=== PATIENT | male | born 2000 | race Caucasian/White ===

== ENCOUNTER 2019-05-28 13:51 | Inpatient (IN) | payer OTHER ==
[2019-05-28 13:57] VITALS: BMI 37.4
[2019-05-28] MEDS ORDERED: ACETAMINOPHEN 1000 MG/100 ML VIAL (NON FORMULARY) IVPB ONE (14:31)
[2019-05-28] MEDS ORDERED: ONDANSETRON 4 MG/2 ML VIAL IVPUSH ONE (14:31)
[2019-05-28] MEDS ORDERED: FAMOTIDINE 20 MG/50 ML IVPB 20 MG/50 ML MG IVPB ONE ×2 (14:31→15:48)
[2019-05-28] MEDS ORDERED: SODIUM CHLORIDE 0.9% 500 ML INFUS.BAG IV ONE ×2 (14:38→17:27)
[2019-05-28] MEDS ORDERED: morphine CARPU-JECT 4 MG/1 ML DISP.SYRIN IVPUSH ONE (14:51)
--- NOTE | 2019-05-28 14:58 | PDOC ---
History of Present Illness - General Chief Complaint: Nausea/Vomiting Stated Complaint: VOMITING Time Seen by Provider: 05/28/19 14:26 - History of Present Illness Initial Comments: 05/28/19 14:52 18 yo M PMH HTN not on medications, presenting with epigastric abdominal pain. Reports that it began this morning at approximately 1000, associated with severe nausea and vomiting, keeping down fluids but unable to keep down any food. Denies CP, SOB, constipation/diarrhea, fevers/chills, ELIAS. Endorses abdominal pain, N/V. Past History - Past Medical History Allergies/Adverse Reactions: Allergies Allergy/AdvReac Type Severity Reaction Status Date / Time No Known Allergies Allergy Verified 05/28/19 13:58 COPD: No HTN: Yes - Psycho Social/Smoking Cessation Hx Smoking History: Never smoked Review of Systems - Review of Systems Comments:: 05/28/19 14:55 GENERAL/CONSTITUTIONAL: No fever or chills. No weakness. HEAD, EYES, EARS, NOSE AND THROAT: No change in vision. No ear pain or discharge. No sore throat. CARDIOVASCULAR: No chest pain or shortness of breath. RESPIRATORY: No cough, wheezing, or hemoptysis. GASTROINTESTINAL: Nausea with vomiting. No diarrhea or constipation. GENITOURINARY: No dysuria, frequency, or change in urination. MUSCULOSKELETAL: No joint or muscle swelling or pain. No neck or back pain. SKIN: No rash NEUROLOGIC: No headache, vertigo, loss of consciousness, or change in strength/ sensation. ENDOCRINE: No increased thirst. No abnormal weight change. HEMATOLOGIC/LYMPHATIC: No anemia, easy bleeding, or history of blood clots. ALLERGIC/IMMUNOLOGIC: No hives or skin allergy *Physical Exam - Vital Signs Last Vital Signs Temp Pulse Resp BP Pulse Ox 98 F 100 H 18 179/120 H 98 05/28/19 13:52 05/28/19 13:52 05/28/19 13:52 05/28/19 13:52 05/28/19 13:52 - Physical Exam 05/28/19 14:57 Gen: well-developed, well-nourished, mild distress Neuro: AAOX4, CN II-XII intact, FTN intact, EOMI, PERRLA, 5/5 strength, SILT HEENT: atraumatic, normocephalic, dry mucous membranes Neck: trachea midline, supple CV: tachycardic, regular rhythm, no murmurs, rubs, or gallops Pulm: CTA b/l, no wheezing Abd: soft, non-distended, ttp in epigastrium, positive Garcia's MSK: full ROM, intact pulses Extr: no edema, no deformities Skin: warm, dry ED Treatment Course - LABORATORY CBC & Chemistry Diagram: 05/28/19 15:15 05/28/19 15:15 Medical Decision Making - Medical Decision Making 05/28/19 14:58 Concern for gastritis v PUD v pancreatitis v cholecystitis. - CMP, CBC, lipase - Ofirmev, Zofran, morphine, 1L NS - ctm 05/28/19 15:46 WBC 23. Will get CT abd/pelvis w/ contrast. 05/28/19 17:28 Lipase 9724. RUQ US with diffuse hepatic steatosis, mildly dilated CBD at 0.7, no biliary wall enlargement, no biliary calculus. CT abd/pelvis: Acute pancreatitis, distended bladder, diffuse hepatic steatosis. Discharge - Discharge Information Problems reviewed: Yes Clinical Impression/Diagnosis: Acute pancreatitis, Hyperglycemia Condition: Improved - Follow up/Referral - Patient Discharge Instructions - Post Discharge Activity
[2019-05-28] MEDS ORDERED: ACETAMINOPHEN INJECTION 100 ML IVPB ONE (15:19)
[2019-05-28] MEDS ORDERED: morphine SULFATE 4 MG/ML VIAL ONE (15:19)
[2019-05-28] MEDS ORDERED: ONDANSETRON 4 MG/2 ML VIAL ONE (15:19)
[2019-05-28 15:29] LABS: BASO % 0.4 % (0-2.0); EOS % 0.6 % (0-4.5); HEMATOCRIT 49.3 % (35.4-49); HEMOGLOBIN 16.5 GM/dL (11.7-16.9); LYMPH % 9.9 % (8-40); MCH 28.3 pg (25.7-33.7); MCHC 33.5 g/dl (32.0-35.9); MEAN CELL VOLUME 84.5 fl (80-96); MEAN PLT VOLUME 8.2 fl (7.5-11.1); MONO % 5.6 % (3.8-10.2); NEUT % 83.5 % (42.8-82.8); PLATELET COUNT 392 K/MM3 (134-434); RBC 5.83 M/mm3 (4.00-5.60); RDW 13.9 % (11.9-15.9)
--- NOTE | 2019-05-28 15:33 | PDOC ---
Attending Attestation - Resident Resident Name: Giuliana Headley - ED Attending Attestation I have performed the following: I have examined & evaluated the patient, The case was reviewed & discussed with the resident, I agree w/resident's findings & plan, Exceptions are as noted - HPI HPI: 05/29/19 09:49 18 y/o with severe epigastric pain starting yesterday No pmh, no meds, denies etoh. Severe persistant constant radiates to back, no exacerbating or alleviating factors - Physicial Exam PE: 06/01/19 08:17 Vitals: Triage Vital signs reviewed General Appearance: Moderate distress head: Atraumatic, Chest Wall: Nontender Cardiac: Regular rate and rhythym, no murmurs, no rubs, no gallops, Lungs: Clear to auscultation bilateral, good air movement bilaterally, Abdomen: Soft, non distended, moderate epigastric tenderness to palpation no rebound no guarding Extremities: Full range of motion to all extremities, no cyanosis, clubbing, or edema Psych: Normal mood, normal affect - Medical Decision Making 05/28/19 15:44 Nausea vomiting epigastric pain elevated white blood cell count will CT abdomen pelvis and reassess Dr. Abbott to follow-up results and dispo
[2019-05-28 15:58] LABS: ALBUMIN 3.3 g/dl (3.4-5.0); BILIRUBIN,TOTAL 0.3 mg/dL (0.2-1); BLOOD UREA NITROGEN 17.9 mg/dL (7-18); CALCIUM 8.9 mg/dL (8.5-10.1); CREATININE 1.1 mg/dL (0.55-1.3); POTASSIUM 3.7 mmol/L (3.5-5.1); TOT PROT 7.3 g/dl (6.4-8.2)
[2019-05-28 16:28] LABS: PLATELET ESTIMATE INCREASED
[2019-05-28] MEDS ORDERED: SODIUM CHLORIDE 0.9% 1000 ML INFUS.BAG IV ONE (18:09)
[2019-05-28] MEDS ORDERED: LACTATED RINGERS SOLUTION 1,000 ML/1,000 ML INFUS.BAG IV SCH (18:15)
[2019-05-28 19:03] LABS: VENOUS PC02 39.7 mmHg (38-52); VENOUS PH 7.35 (7.31-7.41); VENOUS PO2 62.8 mmHg (28-48)
--- NOTE | 2019-05-28 19:37 | HP ---
Admitting History and Physical - Primary Care Physician PCP: Juancho Keane - Admission History of Present Illness: 18 yo M PMH HTN not on medications, presenting with epigastric abdominal pain. Reports that it began this morning at approximately 1000, associated with severe nausea and vomiting, keeping down fluids but unable to keep down any food. - Smoking History Smoking history: Never smoked Home Medications - Allergies Allergies/Adverse Reactions: Allergies Allergy/AdvReac Type Severity Reaction Status Date / Time No Known Allergies Allergy Verified 05/28/19 13:58 - Home Medications Home Medications: Ambulatory Orders NK [No Known Home Medication] 05/28/19 Physical Examination Vital Signs: Vital Signs Temperature 98 F 05/28/19 13:52 Pulse Rate 102 H 05/28/19 18:24 Respiratory Rate 18 05/28/19 13:52 Blood Pressure 169/119 H 05/28/19 18:24 O2 Sat by Pulse Oximetry (%) 98 05/28/19 18:24 Constitutional: Yes: No Distress HENT: Yes: Atraumatic Neck: Yes: Supple Cardiovascular: Yes: Regular Rate and Rhythm Respiratory: Yes: CTA Bilaterally Gastrointestinal: Yes: Normal Bowel Sounds Extremities: Yes: WNL Edema: No Neurological: Yes: Alert, Oriented Labs: CBC, BMP 05/28/19 15:15 05/28/19 15:15 Imaging - Results Cat Scan: Report Reviewed Ultrasound: Report Reviewed Problem List - Problems (1) Acute pancreatitis Assessment/Plan: npo ivf, iv protonix gi eval Code(s): K85.90 - ACUTE PANCREATITIS WITHOUT NECROSIS OR INFECTION, UNSP (2) Hyperglycemia Assessment/Plan: monitor sugars Code(s): R73.9 - HYPERGLYCEMIA, UNSPECIFIED Assessment/Plan Laboratory Tests 05/28/19 05/28/19 05/28/19 15:15 15:15 18:41 WBC 23.0 H RBC 5.83 H Hgb 16.5 Hct 49.3 H MCV 84.5 MCH 28.3 MCHC 33.5 RDW 13.9 Plt Count 392 MPV 8.2 Absolute Neuts (auto) 19.2 H Total Counted 100 Neutrophils % 83.5 H Neutrophils % (Manual) 78.0 Band Neutrophils % 5.0 Lymphocytes % 9.9 Lymphocytes % (Manual) 7.0 L Monocytes % 5.6 Monocytes % (Manual) 8 Eosinophils % 0.6 Basophils % 0.4 Nucleated RBC % 0 Metamyelocytes 2 Platelet Estimate Increased Platelet Comment No clumping noted VBG pH POC VBG pCO2 POC VBG pO2 VBG HCO3 VBG O2 Sat (Colt) VBG Base Excess Sodium 136 Potassium 3.7 Chloride 104 Carbon Dioxide 23 Anion Gap 10 BUN 17.9 Creatinine 1.1 Est GFR (CKD-EPI)AfAm 112.20 Est GFR (CKD-EPI)NonAf 96.80 Random Glucose 269 H Lactic Acid 1.8 Calcium 8.9 Total Bilirubin 0.3 AST 29 ALT 55 Alkaline Phosphatase 98 Total Protein 7.3 Albumin 3.3 L Lipase 9724 H 05/28/19 18:41 WBC RBC Hgb Hct MCV MCH MCHC RDW Plt Count MPV Absolute Neuts (auto) Total Counted Neutrophils % Neutrophils % (Manual) Band Neutrophils % Lymphocytes % Lymphocytes % (Manual) Monocytes % Monocytes % (Manual) Eosinophils % Basophils % Nucleated RBC % Metamyelocytes Platelet Estimate Platelet Comment VBG pH 7.35 POC VBG pCO2 39.7 POC VBG pO2 62.8 H VBG HCO3 21.5 L VBG O2 Sat (Colt) 91.6 H VBG Base Excess -3.3 L Sodium Potassium Chloride Carbon Dioxide Anion Gap BUN Creatinine Est GFR (CKD-EPI)AfAm Est GFR (CKD-EPI)NonAf Random Glucose Lactic Acid Calcium Total Bilirubin AST ALT Alkaline Phosphatase Total Protein Albumin Lipase Active Medications Generic Name Dose Route Start Last Admin Trade Name Freq PRN Reason Stop Dose Admin Sodium Chloride 1,000 mls @ 100 mls/hr 05/28/19 19:45 Normal Saline - IV ASDIR VAL Morphine Sulfate 2 mg 05/28/19 19:34 Morphine Sulfate IVPUSH Q4H PRN PAIN LEVEL 4 - 6 Pantoprazole Sodium 40 mg 05/29/19 10:00 Protonix Iv IVPUSH DAILY VAL
[2019-05-28] MEDS ORDERED: SODIUM CHLORIDE 1,000 ML IV SCH (19:45)
[2019-05-28] MEDS ORDERED: MORPHINE SULFATE 2 MG/ML VIAL ONE (21:50)
[2019-05-28] MEDS: MORPHINE SULFATE 2 MG/ML VIAL IVPUSH PRN (21:55)
[2019-05-29 07:08] LABS: BASO % 0.2 % (0-2.0); EOS % 0.1 % (0-4.5); HEMATOCRIT 53.3 % (35.4-49); HEMOGLOBIN 17.8 GM/dL (11.7-16.9); LYMPH % 7.8 % (8-40); MCH 28.7 pg (25.7-33.7); MCHC 33.4 g/dl (32.0-35.9); MEAN CELL VOLUME 85.8 fl (80-96); MEAN PLT VOLUME 8.8 fl (7.5-11.1); MONO % 8.1 % (3.8-10.2); NEUT % 83.8 % (42.8-82.8); PLATELET COUNT 435 K/MM3 (134-434); RBC 6.22 M/mm3 (4.00-5.60); RDW 14.3 % (11.9-15.9); WHITE BLOOD COUNT 19.3 K/mm3 (4.0-10.0)
[2019-05-29 07:30] LABS: ALBUMIN 2.9 g/dl (3.4-5.0); BILIRUBIN,TOTAL 0.9 mg/dL (0.2-1); BLOOD UREA NITROGEN 15.4 mg/dL (7-18); CALCIUM 8.3 mg/dL (8.5-10.1); CREATININE 1.6 mg/dL (0.55-1.3); POTASSIUM 3.8 mmol/L (3.5-5.1); TOT PROT 6.8 g/dl (6.4-8.2)
[2019-05-29] MEDS ORDERED: ACETAMINOPHEN INJECTION 100 ML IVPB ONE (08:54)
[2019-05-29] MEDS ORDERED: ACETAMINOPHEN 1000 MG/100 ML VIAL (NON FORMULARY) IVPB ONE (08:54)
[2019-05-29] MEDS ORDERED: PANTOPRAZOLE SODIUM 40 MG VIAL IVPUSH SCH (10:00)
--- NOTE | 2019-05-29 11:36 | CON.GI ---
Consult - History of Present Illness History of Present Illness: GI CONSULT DICTATED ORDERS ENTERED SURGERY AND MICU EVALUATION CONTACTED DR. SHELDON - Smoking History Smoking history: Never smoked Home Medications - Allergies Allergies/Adverse Reactions: Allergies Allergy/AdvReac Type Severity Reaction Status Date / Time No Known Allergies Allergy Verified 05/28/19 13:58 - Home Medications Home Medications: Ambulatory Orders NK [No Known Home Medication] 05/28/19 Physical Exam-GI Vital Signs: Vital Signs Temperature 100.8 F H 05/29/19 08:49 Pulse Rate 158 H 05/29/19 08:49 Respiratory Rate 20 05/29/19 08:49 Blood Pressure 156/101 H 05/29/19 08:49 O2 Sat by Pulse Oximetry (%) 97 05/29/19 08:49 Labs: CBC, BMP 05/29/19 05:50 05/29/19 05:50
[2019-05-29] MEDS ORDERED: PANTOPRAZOLE SODIUM 40 MG VIAL ONE (11:52)
--- NOTE | 2019-05-29 12:32 | PN ---
Progress Note, Physician - Current Medication List Current Medications: Active Medications Sodium Chloride (Normal Saline -) 1,000 mls @ 100 mls/hr IV ASDIR [facility] Last Admin: 05/28/19 20:36 Dose: 100 mls/hr Morphine Sulfate (Morphine Sulfate) 2 mg IVPUSH Q4H PRN PRN Reason: PAIN LEVEL 4 - 6 Last Admin: 05/28/19 21:55 Dose: 2 mg Pantoprazole Sodium (Protonix Iv) 40 mg IVPUSH DAILY [facility] Last Admin: 05/29/19 11:51 Dose: 40 mg - Objective Vital Signs: Vital Signs Temperature 98 F 05/29/19 11:51 Pulse Rate 135 H 05/29/19 11:51 Respiratory Rate 19 05/29/19 11:51 Blood Pressure 176/105 H 05/29/19 11:51 O2 Sat by Pulse Oximetry (%) 99 05/29/19 11:51 Constitutional: Yes: Calm HENT: Yes: Atraumatic Neck: Yes: Supple Cardiovascular: Yes: Regular Rate and Rhythm Respiratory: Yes: CTA Bilaterally Gastrointestinal: Yes: Normal Bowel Sounds Extremities: Yes: WNL Edema: No Peripheral Pulses WNL: Yes Neurological: Yes: Alert, Oriented Labs: CBC, BMP 05/29/19 05:50 05/29/19 05:50 Problem List - Problems (1) Acute pancreatitis Assessment/Plan: npo ivf, iv protonix gi surgery and id eval Code(s): K85.90 - ACUTE PANCREATITIS WITHOUT NECROSIS OR INFECTION, UNSP (2) Hyperglycemia Assessment/Plan: monitor sugars endo consult Code(s): R73.9 - HYPERGLYCEMIA, UNSPECIFIED
--- NOTE | 2019-05-29 13:06 | CON.ID ---
Consult - Smoking History Smoking history: Never smoked Home Medications - Allergies Allergies/Adverse Reactions: Allergies Allergy/AdvReac Type Severity Reaction Status Date / Time No Known Allergies Allergy Verified 05/28/19 13:58 - Home Medications Home Medications: Ambulatory Orders NK [No Known Home Medication] 05/28/19 Physical Exam Vital Signs: Vital Signs Temperature 98 F 05/29/19 11:51 Pulse Rate 135 H 05/29/19 11:51 Respiratory Rate 19 05/29/19 11:51 Blood Pressure 176/105 H 05/29/19 11:51 O2 Sat by Pulse Oximetry (%) 99 05/29/19 11:51 Labs: CBC, BMP 05/29/19 05:50 05/29/19 05:50
[2019-05-29] MEDS ORDERED: SODIUM CHLORIDE 1,000 ML IV SCH ×2 (13:38→13:43)
--- NOTE | 2019-05-29 15:52 | CONS ---
GASTROINTESTINAL CONSULTATION DATE OF CONSULTATION: DATE OF DICTATION: 05/29/2019 HISTORY OF PRESENT ILLNESS: The patient is a 18-year-old man with a past medical history of hypertension who presented to the emergency room with epigastric abdominal discomfort with associated nausea and vomiting which began yesterday morning. He states he has also had some chills. He denies any alcohol use, change in medication, previous episodes of this type of pain. No change in his bowel habit, blood in his stool or hematemesis. He has never had pancreatitis in the past as per his history and review of the current chart. PAST MEDICAL AND SURGICAL HISTORY: As listed in the HPI. ALLERGIES: No known drug allergies. SOCIAL HISTORY: Does not drink, smoke or use drugs. FAMILY HISTORY: No history of pancreatic or biliary disease, colon cancer or gynecological malignancy. REVIEW OF SYSTEMS: As per the HPI. Of note, he has never had an endoscopic evaluation in the past. PHYSICAL EXAMINATION: Vital Signs: Temperature 100.8, pulse 130, blood pressure 176/105, oxygen saturation 99% on room air. General: No acute distress. HEENT: Anicteric sclera. Cardiovascular: S1, S2. Regular rate and rhythm. Lungs: Bilaterally clear to auscultation. Abdomen: Tender in the epigastrium without rebound or guarding. Extremities: No edema. LABORATORIES: White blood cell count 19, hemoglobin 17 over 53, platelet count 435. Sodium 139, potassium 3.8, BUN over creatinine 15 over 1.6, lactic acid 1.8. Hemoglobin A1c 9. Calcium 8.3. Lipase 9724, total amylase 1000. IMAGING: He had a CT scan of the abdomen and pelvis done yesterday on admission which revealed acute pancreatitis, no biliary ductal dilatation, and no necrosis was visualized on this contrast study. There is also hepatic steatosis. IMPRESSION: Acute pancreatitis exclude microlithiasis as an etiology as well as HLD, autoimmune etiology. Obtain an MRCP to further evaluate the biliary tree, also lipid panel to exclude hypertriglyceridemia as an etiology, and an IgG4 level to exclude autoimmune etiology.Increase IV fluids to 200 mL per hour. Repeat labs in 6 hours. Panculture. Blood cultures x2. - UA / Urine culture. N.p.o. MRCP ordered. Monitor volume status. Surgery evaluation. Pain management. He may benefit from an ICU evaluation, considering he is tachycardic and appears to be quite volume depleted. Plan of care discussed with primary medical team. DO ANSLEY JACKSON/[id number] [email or web address]
[2019-05-29] MEDS ORDERED: CEFTRIAXONE 1 GM in DEXTROSE 5%-WATER - 50 ML IVPB ONE (16:30)
[2019-05-29] MEDS ORDERED: DEXTROSE 5%-WATER - 50 ML IVPB ONE (16:45)
[2019-05-29] MEDS ORDERED: cefTRIAXone SODIUM 1 GM VIAL ONE (16:45)
[2019-05-29] MEDS: amLODIPine BESYLATE 5 MG TABLET (FP) PO SCH (19:52)
[2019-05-29] MEDS: SODIUM CHLORIDE 1,000 ML IV SCH (19:53)
[2019-05-30] MEDS: MORPHINE SULFATE 2 MG/ML VIAL IVPUSH PRN ×2 (01:16→05:16)
[2019-05-30] MEDS: SODIUM CHLORIDE 1,000 ML IV SCH ×2 (01:42→10:00)
[2019-05-30 06:32] LABS: BASO % 0.3 % (0-2.0); EOS % 1.5 % (0-4.5); HEMOGLOBIN 14.8 GM/dL (11.7-16.9); LYMPH % 13.9 % (8-40); MCH 28.6 pg (25.7-33.7); MCHC 33.7 g/dl (32.0-35.9); MEAN CELL VOLUME 84.7 fl (80-96); MEAN PLT VOLUME 8.2 fl (7.5-11.1); MONO % 12.3 % (3.8-10.2); PLATELET COUNT 316 K/MM3 (134-434); RDW 14.4 % (11.9-15.9); WHITE BLOOD COUNT 17.5 K/mm3 (4.0-10.0)
[2019-05-30 07:16] LABS: ALBUMIN 2.3 g/dl (3.4-5.0); BILIRUBIN,TOTAL 0.6 mg/dL (0.2-1); BLOOD UREA NITROGEN 13.9 mg/dL (7-18); CALCIUM 7.8 mg/dL (8.5-10.1); CREATININE 0.9 mg/dL (0.55-1.3); POTASSIUM 3.7 mmol/L (3.5-5.1); TOT PROT 5.3 g/dl (6.4-8.2)
[2019-05-30 07:37] LABS: CHOLESTEROL 198 mg/dL (50-200); HDL CHOLESTEROL 23 mg/dL (40-60); LDL CHOLESTEROL (ONLY SJRH) 104 mg/dL (5-100); TRIGLYCERIDES 415 mg/dL (0-150)
[2019-05-30] MEDS ORDERED: MORPHINE SULFATE 2 MG/ML VIAL IVPUSH PRN (08:41)
--- NOTE | 2019-05-30 08:44 | CONSULT ---
- Consultation REQUESTING PROVIDER: CONSULT REQUEST: We have been asked to surgically evaluate this patient for acute pancreatitis PCP:Juancho Keane HISTORY OF PRESENT ILLNESS: 18yo M presented to the ED with complaints of epigastric pain with n/v starting sunday 05/27. Pt was found to have acute pancreatitis, with no signs of gallstones or biliary obstruction on US or CT. Pt denies heavy ETOH use admits to drinking socially. Pt denies any recent travel or trauma. Pt states that he had a fever and chills when he came to the ED yesterday. Pt denies any history of pancreatitis or liver issues. PMHx: HTN, obesity PSHx: denies Home Medications Medication Instructions Recorded NK [No Known Home Medication] 05/28/19 Allergies Allergy/AdvReac Type Severity Reaction Status Date / Time No Known Allergies Allergy Verified 05/28/19 13:58 REVIEW OF SYSTEMS: CARDIOVASCULAR: Absent: chest pain, syncope, palpitations, irregular heart rate, lightheadedness , peripheral edema RESPIRATORY: Absent: cough, shortness of breath, dyspnea with exertion, wheezing, stridor, hemoptysis MUSCULOSKELETAL: Absent: myalgia, arthralgia, joint swelling, back pain, neck pain SKIN: Absent: rash, itching, pallor HEMATOLOGIC/IMMUNOLOGIC: Absent: easy bleeding, easy bruising, lymphadenopathy NEUROLOGIC: Absent: headache, focal weakness, paresthesias, dizziness, unsteady gait, seizure, mental status changes, bladder or bowel incontinence PHYSICAL EXAM: GENERAL: Awake, alert, and fully oriented, in no acute distress. HEAD: Normal with no signs of trauma. EYES: PERRL, sclera anicteric, conjunctiva clear. NECK: Normal ROM LUNGS: Clear to auscultation bilat anteriorly. No wheezes, and no crackles. No accessory muscle use. HEART: Regular rate and rhythm. No murmurs ABDOMEN: Soft, mild epigastric tenderness, not distended, no guarding, no rebound, no masses. No organomegaly. MUSCULOSKELETAL: Normal ROM at all joints. No bony deformities or tenderness. No CVA tenderness. UPPER EXTREMITIES: warm, well-perfused. No cyanosis. Cap refill <2 seconds. No peripheral edema. LOWER EXTREMITIES: warm, well-perfused. No calf tenderness. No peripheral edema. NEUROLOGICAL: Normal speech, gait not observed. PSYCH: Cooperative. Good eye contact. Appropriate mood and affect. SKIN: Warm, dry, normal turgor, no rashes or lesions noted. Vital Signs Temperature 99.8 F H 05/30/19 05:33 Pulse Rate 122 H 05/30/19 05:33 Respiratory Rate 22 H 05/30/19 05:33 Blood Pressure 167/106 H 05/30/19 05:33 O2 Sat by Pulse Oximetry (%) 96 05/29/19 20:28 Lab Results WBC 17.5 K/mm3 (4.0-10.0) H 05/30/19 05:34 RBC 5.20 M/mm3 (4.00-5.60) 05/30/19 05:34 Hgb 14.8 GM/dL (11.7-16.9) 05/30/19 05:34 Hct 44.0 % (35.4-49) D 05/30/19 05:34 MCV 84.7 fl (80-96) 05/30/19 05:34 MCHC 33.7 g/dl (32.0-35.9) 05/30/19 05:34 RDW 14.4 % (11.9-15.9) 05/30/19 05:34 Plt Count 316 K/MM3 (134-434) D 05/30/19 05:34 Sodium 143 mmol/L (136-145) 05/30/19 05:34 Potassium 3.7 mmol/L (3.5-5.1) 05/30/19 05:34 Chloride 111 mmol/L (98-107) H 05/30/19 05:34 Carbon Dioxide 23 mmol/L (21-32) 05/30/19 05:34 Anion Gap 9 MMOL/L (8-16) 05/30/19 05:34 BUN 13.9 mg/dL (7-18) 05/30/19 05:34 Creatinine 0.9 mg/dL (0.55-1.3) 05/30/19 05:34 Random Glucose 192 mg/dL (74-106) H 05/30/19 05:34 Calcium 7.8 mg/dL (8.5-10.1) L 05/30/19 05:34 RUQ US with diffuse hepatic steatosis, mildly dilated CBD at 0.7, no biliary wall enlargement, no biliary calculus. CT abd/pelvis: Acute pancreatitis, distended bladder, diffuse hepatic steatosis. Problem List - Problems (1) Acute pancreatitis Assessment/Plan: Plan -continue NPO/IVF -abx as per med/ID -will follow up abd MRI -GI recs -DVT and GI ppx Code(s): K85.90 - ACUTE PANCREATITIS WITHOUT NECROSIS OR INFECTION, UNSP
[2019-05-30] MEDS ORDERED: hydrALAZINE HCL 20 MG/ML VIAL IVPB ONE (09:00)
--- NOTE | 2019-05-30 09:32 | CONSULT ---
Addendum entered and electronically signed by Norman Florian MD 05/30/19 12: 47: error note Original Note: Consult Consult Specialty:: Endocrinology Referred by:: Dr Keane Reason for Consultation:: Hyperglycemia - History of Present Illness Chief Complaint: Abd pain, N/V History of Present Illness: This is a 18 y/o male with h/o HTN not on medications who presenting with epigastric abdominal pain which began in the morning at approximately associated with severe nausea and vomiting, keeping down fluids but unable to keep down any food. Pt found to have acute pancreatitis and hyperglycemia. Pt referred for management of hyperglycemia. Pt gives h/o increase thirst for about a week, wt loss of around 15 lbs over the last year which he attributes to exercising. Denies any visual symptoms. No family h/o DM Denies CP, SOB, constipation/diarrhea, fevers/chills, ELIAS. Endorses abdominal pain, N/V. - Smoking History Smoking history: Never smoked <Windy Pantoja - Last Filed: 05/30/19 16:04> Home Medications <Norman Florian - Last Filed: 05/30/19 12:46> <Windy Pantoja - Last Filed: 05/30/19 16:04> - Allergies Allergies/Adverse Reactions: Allergies Allergy/AdvReac Type Severity Reaction Status Date / Time No Known Allergies Allergy Verified 05/28/19 13:58 - Home Medications Home Medications: Ambulatory Orders NK [No Known Home Medication] 05/28/19 Physical Exam Vital Signs: Vital Signs Temperature 99.8 F H 05/30/19 05:33 Pulse Rate 122 H 05/30/19 05:33 Respiratory Rate 22 H 05/30/19 05:33 Blood Pressure 167/106 H 05/30/19 05:33 O2 Sat by Pulse Oximetry (%) 96 05/29/19 20:28 Labs: CBC, BMP 05/30/19 05:34 05/30/19 05:34 <Norman Florian - Last Filed: 05/30/19 12:46> Vital Signs: Vital Signs Temperature 99.8 F H 05/30/19 05:33 Pulse Rate 122 H 05/30/19 05:33 Respiratory Rate 22 H 05/30/19 05:33 Blood Pressure 167/106 H 05/30/19 05:33 O2 Sat by Pulse Oximetry (%) 96 05/29/19 20:28 Labs: CBC, BMP 05/30/19 05:34 05/30/19 05:34 <Wnidy Pantoja - Last Filed: 05/30/19 16:04> Assessment/Plan Problem List - Problems (1) Acute pancreatitis Code(s): K85.90 - ACUTE PANCREATITIS WITHOUT NECROSIS OR INFECTION, UNSP (2) Hyperglycemia Code(s): R73.9 - HYPERGLYCEMIA, UNSPECIFIED obesity abd pain plan i am going to hold abx for now will see what repeat imaging shows hydration npo gi and endo on board <Norman Florian - Last Filed: 05/30/19 12:46> Please see 2nd consult note as this incomplete note was sign by Dr Florian by error. Windy Pantoja MD <Windy Pantoja - Last Filed: 05/30/19 16:04>
[2019-05-30] MEDS: PANTOPRAZOLE SODIUM 40 MG VIAL IVPUSH SCH (09:57)
[2019-05-30] MEDS: amLODIPine BESYLATE 5 MG TABLET (FP) PO SCH (09:59)
--- NOTE | 2019-05-30 10:42 | EKG ---
Test Reason : Blood Pressure : / mmHG Vent. Rate : 154 BPM Atrial Rate : 154 BPM P-R Int : 114 ms QRS Dur : 074 ms QT Int : 260 ms P-R-T Axes : 049 046 012 degrees QTc Int : 416 ms SINUS TACHYCARDIA NONSPECIFIC T WAVE ABNORMALITY ABNORMAL ECG WHEN COMPARED WITH ECG OF 29-MAY-2019 08:55, PREVIOUS ECG HAS UNDETERMINED RHYTHM, NEEDS REVIEW Confirmed by RITA ALDRICH, CECILY ([id number]) on 05/30/2019 10:41:27 AM Referred By: Confirmed By:CECILY SALINAS MD
--- NOTE | 2019-05-30 12:45 | PN ---
Progress Note, Physician History of Present Illness: feeling slightly better still with abd pain - Current Medication List Current Medications: Active Medications Amlodipine Besylate (Norvasc -) 5 mg PO DAILY [facility] Last Admin: 05/30/19 09:59 Dose: 5 mg Sodium Chloride (Normal Saline -) 1,000 mls @ 150 mls/hr IV ASDIR [facility] Last Admin: 05/30/19 10:00 Dose: 150 mls/hr Morphine Sulfate (Morphine Sulfate) 2 mg IVPUSH Q4H PRN PRN Reason: PAIN LEVEL 4 - 6 Pantoprazole Sodium (Protonix Iv) 40 mg IVPUSH DAILY [facility] Last Admin: 05/30/19 09:57 Dose: 40 mg - Objective Vital Signs: Vital Signs Temperature 99.8 F H 05/30/19 05:33 Pulse Rate 122 H 05/30/19 05:33 Respiratory Rate 22 H 05/30/19 05:33 Blood Pressure 167/106 H 05/30/19 05:33 O2 Sat by Pulse Oximetry (%) 96 05/29/19 20:28 Constitutional: Yes: Calm, Mild Distress, Obese Cardiovascular: Yes: Regular Rate and Rhythm Respiratory: Yes: Regular, CTA Bilaterally Gastrointestinal: Yes: Soft, Other (absent bowel sounds) Musculoskeletal: Yes: WNL Extremities: Yes: WNL Neurological: Yes: Alert, Oriented Psychiatric: Yes: Alert, Oriented Labs: CBC, BMP 05/30/19 05:34 05/30/19 05:34 Assessment/Plan Problem List - Problems (1) Acute pancreatitis Code(s): K85.90 - ACUTE PANCREATITIS WITHOUT NECROSIS OR INFECTION, UNSP (2) Hyperglycemia Code(s): R73.9 - HYPERGLYCEMIA, UNSPECIFIED obesity abd pain plan i am going to hold abx for now will see what repeat imaging shows hydration npo gi and endo on board
--- NOTE | 2019-05-30 14:45 | CON.CARD ---
Consult Consult Specialty:: Cardiology Referred by:: Hospitalist Medicine Reason for Consultation:: Sinus tachycardia - History of Present Illness Chief Complaint: Epigastric discomfort History of Present Illness: This is a 18 y/o male with h/o HTN not on medications who presented with epigastric abdominal pain radiating to back associated with severe nausea and vomiting, keeping down fluids but unable to keep down any food. Pt found to have acute pancreatitis, sinus tachycardia and hyperglycemia, feels improved after IVF, abx and bowel rest. - History Source History Provided By: Patient Limitations to Obtaining History: No Limitations - Smoking History Smoking history: Never smoked Home Medications - Allergies Allergies/Adverse Reactions: Allergies Allergy/AdvReac Type Severity Reaction Status Date / Time No Known Allergies Allergy Verified 05/28/19 13:58 - Home Medications Home Medications: Ambulatory Orders NK [No Known Home Medication] 05/28/19 Review of Systems - Review of Systems Gastrointestinal: reports: Abdominal Pain, Nausea, Vomiting Vital Signs: Vital Signs Temperature 98.4 F 05/30/19 14:38 Pulse Rate 135 H 05/30/19 14:38 Respiratory Rate 20 05/30/19 14:38 Blood Pressure 148/98 05/30/19 14:38 O2 Sat by Pulse Oximetry (%) 96 05/30/19 09:00 Constitutional: Yes: No Distress, Calm Neck: Yes: Supple Respiratory: Yes: Regular, CTA Bilaterally Gastrointestinal: Yes: Soft, Hypoactive Bowel Sounds Cardiovascular: Yes: Tachycardia JVD: No Carotid Bruit: No Heart Sounds: Yes: S1, S2 Edema: No - Other Data Labs, Other Data: CBC, BMP 05/30/19 05:34 05/30/19 05:34 ST @ 154 nonspec T changes Tele: ST Ejection Fraction %: LVEF > or = 40 % Problem List - Problems (1) Hypertension Code(s): I10 - ESSENTIAL (PRIMARY) HYPERTENSION Qualifiers: Hypertension type: essential hypertension Qualified Code(s): I10 - Essential (primary) hypertension (2) Sinus tachycardia Code(s): R00.0 - TACHYCARDIA, UNSPECIFIED (3) Acute pancreatitis Code(s): K85.90 - ACUTE PANCREATITIS WITHOUT NECROSIS OR INFECTION, UNSP Qualifiers: Pancreatitis type: other (4) Hyperglycemia Code(s): R73.9 - HYPERGLYCEMIA, UNSPECIFIED Assessment/Plan MRCP: No cholelithiasis or choledocholithiasis RUQ US with diffuse hepatic steatosis, mildly dilated CBD at 0.7, no biliary wall enlargement, no biliary calculus. CT abd/pelvis: Acute pancreatitis, distended bladder, diffuse hepatic steatosis. 1. Acute pancreatitis 2. Hypertension 3. Reactive sinus tachycardia P:1. Bowel rest, empiric abx per ID, IVF, f/u amylase/lipase to document peak 2. Continue Norvasc 5 qd 3. No specific treatment indicated for sinus tachycardia, treating underlying cause 4. Thank you for consultative opportunity
--- NOTE | 2019-05-30 16:01 | CONSULT ---
Consult Consult Specialty:: Endocrinology Referred by:: Dr Keane Reason for Consultation:: Hyperglycemia. - History of Present Illness Chief Complaint: Abd pain History of Present Illness: This is a 18 y/o male with h/o HTN not on medications who presenting with epigastric abdominal pain which began in the morning at approximately associated with severe nausea and vomiting, keeping down fluids but unable to keep down any food. Pt found to have acute pancreatitis and hyperglycemia. Pt referred for management of hyperglycemia. Pt gives h/o increase thirst for about a week, wt loss of around 15 lbs over the last year which he attributes to exercising. Denies any visual symptoms. No family h/o DM. Denies CP, SOB, constipation/diarrhea, fevers/chills, ELIAS. - History Source History Provided By: Patient, Medical Record - Smoking History Smoking history: Never smoked Home Medications - Allergies Allergies/Adverse Reactions: Allergies Allergy/AdvReac Type Severity Reaction Status Date / Time No Known Allergies Allergy Verified 05/28/19 13:58 - Home Medications Home Medications: Ambulatory Orders NK [No Known Home Medication] 05/28/19 Review of Systems - Review of Systems Constitutional: reports: No Symptoms Eyes: reports: No Symptoms HENT: reports: No Symptoms Neck: reports: No Symptoms Cardiovascular: reports: No Symptoms Respiratory: reports: No Symptoms Gastrointestinal: reports: Abdominal Pain Genitourinary: reports: No Symptoms Breasts: reports: No Symptoms Reported Musculoskeletal: reports: No Symptoms Integumentary: reports: No Symptoms Neurological: reports: No Symptoms Endocrine: reports: No Symptoms Hematology/Lymphatic: reports: No Symptoms Psychiatric: reports: No Symptoms Physical Exam Vital Signs: Vital Signs Temperature 98.4 F 05/30/19 14:38 Pulse Rate 135 H 05/30/19 14:38 Respiratory Rate 20 05/30/19 14:38 Blood Pressure 148/98 05/30/19 14:38 O2 Sat by Pulse Oximetry (%) 96 05/30/19 09:00 Constitutional: Yes: No Distress, Calm Eyes: Yes: Conjunctiva Clear, EOM Intact HENT: Yes: Atraumatic, Normocephalic Neck: Yes: Supple, Trachea Midline Cardiovascular: Yes: Regular Rate and Rhythm Respiratory: Yes: Regular, CTA Bilaterally Gastrointestinal: Yes: Tenderness, Epigastrium Extremities: Yes: WNL Edema: No Neurological: Yes: Alert, Oriented Labs: CBC, BMP 05/30/19 05:34 05/30/19 05:34 Assessment/Plan A/P Acute Pancreatitis New Onset DM: A1c 9.0 HTN Hypertriglyceridemia Diet exercise discussed Diabetes education done Nutrition consult BGM QACHS Novolog SS covrerage Will need to sent home on Insulin Will need w/u as outpt to confirm pt is T2DM Monitor lipids Will F/U
--- NOTE | 2019-05-30 16:31 | PN.GI ---
GI Progress Note Subjective: Patient pain free. No fevers, sweats, chills. - Objective Vital Signs: Vital Signs Temperature 98.4 F 05/30/19 14:38 Pulse Rate 135 H 05/30/19 14:38 Respiratory Rate 20 05/30/19 14:38 Blood Pressure 148/98 05/30/19 14:38 O2 Sat by Pulse Oximetry (%) 96 05/30/19 09:00 Constitutional: No Distress, Calm ...Auscultate: Yes: Normoactive Bowel Sounds ...Palpate: Yes: Soft. No: Tenderness Labs: CBC, BMP 05/30/19 05:34 05/30/19 05:34 - ....Imaging MRI: Report Reviewed (Extensive enlargement of pancreas and peripancreatic fluid and edema extending inferiorly along retroperitoneal planes. No gallstones , no CBD filling defects, though GB wall slightly thickened; no CBD dilatation.) Assessment/Plan With triglycerides less than 1000 and no evidence of gallstone disease, as well as lack of EtOH binging by history, etiology of pancreatitis remains obscure but continues to include IgG4 disease, CF heterozygosity and idiopathic pancreatitis. Remians tachycardic but pain much improved. Suggest continue NPO , continue antibiotics; CT with contrast at ~7 days to assess for necrosis, pseudoaneurysm, emerging pseudocyst. Consider TPN.
[2019-05-30] MEDS: INSULIN SLIDING SCALE (NOVOLOG) 1 VIAL SQ SCH (17:23)
--- NOTE | 2019-05-30 19:43 | PN ---
Progress Note, Physician - Current Medication List Current Medications: Active Medications Amlodipine Besylate (Norvasc -) 5 mg PO DAILY [facility] Last Admin: 05/30/19 09:59 Dose: 5 mg Sodium Chloride (Normal Saline -) 1,000 mls @ 150 mls/hr IV ASDIR [facility] Last Admin: 05/30/19 10:00 Dose: 150 mls/hr Insulin Aspart (Novolog Vial Sliding Scale -) 1 vial SQ TIDAC [facility]; Protocol Last Admin: 05/30/19 17:23 Dose: Not Given Morphine Sulfate (Morphine Sulfate) 2 mg IVPUSH Q4H PRN PRN Reason: PAIN LEVEL 4 - 6 Pantoprazole Sodium (Protonix Iv) 40 mg IVPUSH DAILY [facility] Last Admin: 05/30/19 09:57 Dose: 40 mg - Objective Vital Signs: Vital Signs Temperature 99.0 F 05/30/19 17:00 Pulse Rate 128 H 05/30/19 17:00 Respiratory Rate 20 05/30/19 17:00 Blood Pressure 153/80 05/30/19 17:00 O2 Sat by Pulse Oximetry (%) 96 05/30/19 09:00 Constitutional: Yes: No Distress HENT: Yes: Atraumatic Neck: Yes: Supple Cardiovascular: Yes: Regular Rate and Rhythm Respiratory: Yes: CTA Bilaterally Gastrointestinal: Yes: Normal Bowel Sounds Extremities: Yes: WNL Neurological: Yes: Alert, Oriented Labs: CBC, BMP 05/30/19 05:34 05/30/19 05:34 Problem List - Problems (1) Acute pancreatitis Assessment/Plan: npo ivf, iv protonix gi surgery and id eval monitor labs Code(s): K85.90 - ACUTE PANCREATITIS WITHOUT NECROSIS OR INFECTION, UNSP Qualifiers: Pancreatitis type: other (2) Hyperglycemia Assessment/Plan: monitor sugars endo consult Code(s): R73.9 - HYPERGLYCEMIA, UNSPECIFIED
[2019-05-31] MEDS: INSULIN SLIDING SCALE (NOVOLOG) 1 VIAL SQ SCH ×3 (07:02→17:36)
[2019-05-31] MEDS: PANTOPRAZOLE SODIUM 40 MG VIAL IVPUSH SCH (09:06)
[2019-05-31] MEDS: amLODIPine BESYLATE 5 MG TABLET (FP) PO SCH (09:06)
[2019-05-31] MEDS ORDERED: PT OWN MED DRAWER 7, Y5N ONE (10:56)
--- NOTE | 2019-05-31 11:39 | PN ---
Progress Note, Physician History of Present Illness: stable pain much better - Current Medication List Current Medications: Active Medications Amlodipine Besylate (Norvasc -) 5 mg PO DAILY [facility] Last Admin: 05/31/19 09:06 Dose: 5 mg Sodium Chloride (Normal Saline -) 1,000 mls @ 150 mls/hr IV ASDIR [facility] Last Admin: 05/30/19 10:00 Dose: 150 mls/hr Insulin Aspart (Novolog Vial Sliding Scale -) 1 vial SQ TIDAC [facility]; Protocol Last Admin: 05/31/19 07:02 Dose: Not Given Morphine Sulfate (Morphine Sulfate) 2 mg IVPUSH Q4H PRN PRN Reason: PAIN LEVEL 4 - 6 Last Admin: 05/31/19 00:27 Dose: 2 mg Pantoprazole Sodium (Protonix Iv) 40 mg IVPUSH DAILY [facility] Last Admin: 05/31/19 09:06 Dose: 40 mg - Objective Vital Signs: Vital Signs Temperature 99.6 F 05/31/19 09:00 Pulse Rate 122 H 05/31/19 09:00 Respiratory Rate 18 05/31/19 09:00 Blood Pressure 156/95 05/31/19 09:00 O2 Sat by Pulse Oximetry (%) 95 05/30/19 21:00 Constitutional: Yes: No Distress, Calm Cardiovascular: Yes: S1, S2 Respiratory: Yes: Regular, CTA Bilaterally Gastrointestinal: Yes: Normal Bowel Sounds, Soft Musculoskeletal: Yes: WNL Extremities: Yes: WNL Neurological: Yes: Alert, Oriented Psychiatric: Yes: Alert, Oriented Labs: CBC, BMP 05/30/19 05:34 05/30/19 05:34 Assessment/Plan Problem List - Problems (1) Acute pancreatitis Code(s): K85.90 - ACUTE PANCREATITIS WITHOUT NECROSIS OR INFECTION, UNSP (2) Hyperglycemia Code(s): R73.9 - HYPERGLYCEMIA, UNSPECIFIED obesity abd pain plan continue current mgmt hydration
[2019-05-31 12:24] LABS: HEMATOCRIT 39.9 % (35.4-49); HEMOGLOBIN 13.3 GM/dL (11.7-16.9); MCH 28.6 pg (25.7-33.7); MCHC 33.4 g/dl (32.0-35.9); MEAN CELL VOLUME 85.6 fl (80-96); PLATELET COUNT 333 K/MM3 (134-434); RBC 4.66 M/mm3 (4.00-5.60); RDW 14.2 % (11.9-15.9); WHITE BLOOD COUNT 18.9 K/mm3 (4.0-10.0)
--- NOTE | 2019-05-31 12:27 | PN ---
Progress Note, Physician History of Present Illness: Epigastric abdominal pain continues to improve with bowel rest, IVF and abx. Sinus tachycardia also improving. - Current Medication List Current Medications: Active Medications Amlodipine Besylate (Norvasc -) 5 mg PO DAILY [facility] Last Admin: 05/31/19 09:06 Dose: 5 mg Sodium Chloride (Normal Saline -) 1,000 mls @ 150 mls/hr IV ASDIR [facility] Last Admin: 05/30/19 10:00 Dose: 150 mls/hr Insulin Aspart (Novolog Vial Sliding Scale -) 1 vial SQ TIDAC [facility]; Protocol Last Admin: 05/31/19 11:51 Dose: Not Given Morphine Sulfate (Morphine Sulfate) 2 mg IVPUSH Q4H PRN PRN Reason: PAIN LEVEL 4 - 6 Last Admin: 05/31/19 00:27 Dose: 2 mg Pantoprazole Sodium (Protonix Iv) 40 mg IVPUSH DAILY [facility] Last Admin: 05/31/19 09:06 Dose: 40 mg - Objective Vital Signs: Vital Signs Temperature 99.6 F 05/31/19 09:00 Pulse Rate 122 H 05/31/19 09:00 Respiratory Rate 18 05/31/19 09:00 Blood Pressure 156/95 05/31/19 09:00 O2 Sat by Pulse Oximetry (%) 95 05/30/19 21:00 Constitutional: Yes: No Distress, Calm Neck: Yes: Supple Cardiovascular: Yes: Tachycardia Respiratory: Yes: Regular, CTA Bilaterally Gastrointestinal: Yes: Soft, Hypoactive Bowel Sounds, Tenderness, Epigastrium Edema: No Labs: CBC, BMP 05/30/19 05:34 - ....Imaging EKG: Report Reviewed (Tele: Improved sinus tachycardia) Problem List - Problems (1) Hypertension Code(s): I10 - ESSENTIAL (PRIMARY) HYPERTENSION Qualifiers: Hypertension type: essential hypertension Qualified Code(s): I10 - Essential (primary) hypertension (2) Sinus tachycardia Code(s): R00.0 - TACHYCARDIA, UNSPECIFIED (3) Acute pancreatitis Code(s): K85.90 - ACUTE PANCREATITIS WITHOUT NECROSIS OR INFECTION, UNSP Qualifiers: Pancreatitis type: other (4) Hyperglycemia Code(s): R73.9 - HYPERGLYCEMIA, UNSPECIFIED Assessment/Plan MRCP: No cholelithiasis or choledocholithiasis RUQ US with diffuse hepatic steatosis, mildly dilated CBD at 0.7, no biliary wall enlargement, no biliary calculus. CT abd/pelvis: Acute pancreatitis, distended bladder, diffuse hepatic steatosis. 1. Acute pancreatitis clinically improving, DDx includes IgG4 disease, CF heterozygosity and idiopathic pancreatitis 2. Hypertension 3. Reactive sinus tachycardia improving P:1. Bowel rest, empiric abx per ID, IVF, amylase/lipase are declining, clear liquids per GI 2. Continue Norvasc 5 qd 3. No specific treatment indicated for sinus tachycardia, treating underlying cause 4. CT with contrast at ~6 days to assess for necrosis, pseudoaneurysm, emerging pseudocyst
--- NOTE | 2019-05-31 13:00 | PN ---
Progress Note (short form) - Note Progress Note: Feels good Denies any complaints No abd pain , No NV Vital Signs Period Temp Pulse Resp BP Sys/Powell Pulse Ox Last 24 Hr 98.2 F-99.6 F 122-135 18-20 142-156/80-98 95 PE: AOx3 Neck: supple, No JVD HEENT: EOMI Lungs: CTA CVS: S1S2 Abd: Benign, NT, +BS Ext: No edema Neuro: No focal deficit CMP Sodium 143 mmol/L (136-145) 05/30/19 05:34 Potassium 3.7 mmol/L (3.5-5.1) 05/30/19 05:34 Chloride 111 mmol/L (98-107) H 05/30/19 05:34 Carbon Dioxide 23 mmol/L (21-32) 05/30/19 05:34 Anion Gap 9 MMOL/L (8-16) 05/30/19 05:34 BUN 13.9 mg/dL (7-18) 05/30/19 05:34 Creatinine 0.9 mg/dL (0.55-1.3) 05/30/19 05:34 Est GFR (CKD-EPI)AfAm 143.00 05/30/19 05:34 Est GFR (CKD-EPI)NonAf 123.38 05/30/19 05:34 POC Glucometer 174 UNITS (80-120) 05/31/19 11:49 Random Glucose 192 mg/dL (74-106) H 05/30/19 05:34 Hemoglobin A1c % 9.0 % (4.2-6.3) H 05/29/19 05:50 Lactic Acid 1.8 mmol/L (0.4-2.0) 05/28/19 18:41 Calcium 7.8 mg/dL (8.5-10.1) L 05/30/19 05:34 Total Bilirubin 0.6 mg/dL (0.2-1) 05/30/19 05:34 AST 20 U/L (15-37) 05/30/19 05:34 ALT 34 U/L (13-61) 05/30/19 05:34 Alkaline Phosphatase 52 U/L (45-117) 05/30/19 05:34 Total Protein 5.3 g/dl (6.4-8.2) L 05/30/19 05:34 Albumin 2.3 g/dl (3.4-5.0) L 05/30/19 05:34 Triglycerides 415 mg/dL (0-150) H 05/30/19 07:20 Cholesterol 198 mg/dL (50-200) 05/30/19 07:20 Total LDL Cholesterol 104 mg/dL (5-100) H 05/30/19 07:20 HDL Cholesterol 23 mg/dL (40-60) L 05/30/19 07:20 Total Amylase 343 U/L (25-115) H 05/30/19 05:34 Lipase 3275 U/L (73-393) H 05/30/19 05:34 Current Medications Generic Name Dose Route Start Last Admin Trade Name Freq PRN Reason Stop Dose Admin Amlodipine Besylate 5 mg 05/29/19 19:15 05/31/19 09:06 Norvasc - PO 5 mg DAILY [facility] Administration Sodium Chloride 1,000 mls @ 150 mls/hr 05/29/19 19:10 05/30/19 10:00 Normal Saline - IV 150 mls/hr ASDIR VAL Administration Insulin Aspart 1 vial 05/30/19 16:30 05/31/19 11:51 Novolog Vial Sliding Scale - SQ Not Given TIDAC [facility] Protocol Morphine Sulfate 2 mg 05/30/19 08:41 05/31/19 00:27 Morphine Sulfate IVPUSH 2 mg Q4H PRN Administration PAIN LEVEL 4 - 6 Pantoprazole Sodium 40 mg 05/30/19 10:00 05/31/19 09:06 Protonix Iv IVPUSH 40 mg DAILY [facility] Administration A/P Acute Pancreatitis New Onset DM: A1c 9.0 HTN Hypertriglyceridemia Still NPO, hasn't needed Insulin coverage Teach pt to self monitor blood glucose and self inject insulin Nutrition consult BGM QACHS Novolog SS coverage Will need to sent home on Insulin Will need w/u as outpt to confirm pt is T2DM Monitor lipids Will F/U
--- NOTE | 2019-05-31 17:09 | PN ---
Progress Note, Physician - Current Medication List Current Medications: Active Medications Amlodipine Besylate (Norvasc -) 5 mg PO DAILY [facility] Last Admin: 05/31/19 09:06 Dose: 5 mg Sodium Chloride (Normal Saline -) 1,000 mls @ 150 mls/hr IV ASDIR [facility] Last Admin: 05/30/19 10:00 Dose: 150 mls/hr Insulin Aspart (Novolog Vial Sliding Scale -) 1 vial SQ TIDAC [facility]; Protocol Last Admin: 05/31/19 11:51 Dose: Not Given Morphine Sulfate (Morphine Sulfate) 2 mg IVPUSH Q4H PRN PRN Reason: PAIN LEVEL 4 - 6 Last Admin: 05/31/19 00:27 Dose: 2 mg Pantoprazole Sodium (Protonix Iv) 40 mg IVPUSH DAILY [facility] Last Admin: 05/31/19 09:06 Dose: 40 mg - Objective Vital Signs: Vital Signs Temperature 99.3 F 05/31/19 14:00 Pulse Rate 116 H 05/31/19 14:00 Respiratory Rate 18 05/31/19 14:00 Blood Pressure 145/94 05/31/19 14:00 O2 Sat by Pulse Oximetry (%) 97 05/31/19 09:00 Constitutional: Yes: No Distress HENT: Yes: Atraumatic Neck: Yes: Supple Cardiovascular: Yes: Regular Rate and Rhythm Respiratory: Yes: CTA Bilaterally Extremities: Yes: WNL Edema: No Neurological: Yes: Alert, Oriented Labs: CBC, BMP 05/31/19 12:04 05/30/19 05:34 Problem List - Problems (1) Acute pancreatitis Assessment/Plan: npo ivf, iv protonix gi surgery and id eval monitor labs if labs improving will start him on clear liquid diet Code(s): K85.90 - ACUTE PANCREATITIS WITHOUT NECROSIS OR INFECTION, UNSP Qualifiers: Pancreatitis type: other (2) Hyperglycemia Assessment/Plan: monitor sugars endo consult Code(s): R73.9 - HYPERGLYCEMIA, UNSPECIFIED
--- NOTE | 2019-05-31 19:49 | PN.GI ---
GI Progress Note Subjective: No abdominal pain States feeling better - Objective Vital Signs: Vital Signs Temperature 99.3 F 05/31/19 14:00 Pulse Rate 116 H 05/31/19 14:00 Respiratory Rate 18 05/31/19 14:00 Blood Pressure 145/94 05/31/19 14:00 O2 Sat by Pulse Oximetry (%) 97 05/31/19 09:00 Constitutional: Calm Eyes: No: Sclera Icterus Cardiovascular: Yes: Tachycardia Respiratory: Yes: CTA Bilaterally Gastrointestinal Inspection: No: Distention ...Auscultate: Yes: Normoactive Bowel Sounds ...Palpate: Yes: Soft. No: Hepatomegaly, Splenomegaly, Tenderness ...Percussion: No: Tympanitic Edema: No (No LE edema) Neurological: Yes: Alert Labs: CBC, BMP 05/31/19 12:04 05/30/19 05:34 Problem List - Problems (1) Acute pancreatitis Assessment/Plan: Of unclear etiology. Triglycerides a few days into admission were 400. They were not checked at admission. usually levels >1000 can lead to pancreatitis. Continue supportive measures. Advanced to clears. If tolerating, advance to diabetic low fat CT scan of abdomen with pancreatic protocol for further evaluation of pancreatic parenchyma and to assess for acute fluid collections IgG4 ordered Code(s): K85.90 - ACUTE PANCREATITIS WITHOUT NECROSIS OR INFECTION, UNSP Qualifiers: Pancreatitis type: other
[2019-05-31 20:22] LABS: AMYLASE 112 U/L (25-115); LIPASE 776 U/L (73-393)
[2019-06-01] MEDS: INSULIN SLIDING SCALE (NOVOLOG) 1 VIAL SQ SCH ×3 (06:12→17:57)
[2019-06-01 06:53] LABS: BASO % 0.5 % (0-2.0); EOS % 2.5 % (0-4.5); HEMATOCRIT 38.7 % (35.4-49); HEMOGLOBIN 12.9 GM/dL (11.7-16.9); LYMPH % 15.9 % (8-40); MCH 28.6 pg (25.7-33.7); MCHC 33.3 g/dl (32.0-35.9); MEAN CELL VOLUME 85.8 fl (80-96); MONO % 10.6 % (3.8-10.2); NEUT % 70.5 % (42.8-82.8); PLATELET COUNT 335 K/MM3 (134-434); RBC 4.51 M/mm3 (4.00-5.60); RDW 14.1 % (11.9-15.9); WHITE BLOOD COUNT 17.6 K/mm3 (4.0-10.0)
[2019-06-01 07:20] LABS: BILIRUBIN,TOTAL 0.6 mg/dL (0.2-1); BLOOD UREA NITROGEN 10.8 mg/dL (7-18); CALCIUM 8.2 mg/dL (8.5-10.1); CREATININE 0.9 mg/dL (0.55-1.3); POTASSIUM 3.5 mmol/L (3.5-5.1); TOT PROT 5.6 g/dl (6.4-8.2)
--- NOTE | 2019-06-01 10:23 | PN ---
Progress Note, Physician History of Present Illness: Epigastric abdominal pain, nausea and emesis resolved with bowel rest, IVF and abx. Sinus tachycardia also improving. Tolerating clear liquid diet. - Current Medication List Current Medications: Active Medications Amlodipine Besylate (Norvasc -) 5 mg PO DAILY [facility] Last Admin: 05/31/19 09:06 Dose: 5 mg Sodium Chloride (Normal Saline -) 1,000 mls @ 150 mls/hr IV ASDIR [facility] Last Admin: 05/30/19 10:00 Dose: 150 mls/hr Insulin Aspart (Novolog Vial Sliding Scale -) 1 vial SQ TIDAC [facility]; Protocol Last Admin: 06/01/19 06:12 Dose: Not Given Morphine Sulfate (Morphine Sulfate) 2 mg IVPUSH Q4H PRN PRN Reason: PAIN LEVEL 4 - 6 Last Admin: 05/31/19 00:27 Dose: 2 mg - Objective Vital Signs: Vital Signs Temperature 98.1 F 06/01/19 05:00 Pulse Rate 121 H 06/01/19 05:00 Respiratory Rate 18 06/01/19 05:00 Blood Pressure 154/88 06/01/19 05:00 O2 Sat by Pulse Oximetry (%) 95 05/31/19 21:00 Constitutional: Yes: No Distress, Calm Neck: Yes: Supple Cardiovascular: Yes: Tachycardia Respiratory: Yes: Regular, CTA Bilaterally Gastrointestinal: Yes: Soft, Hypoactive Bowel Sounds Edema: No Labs: CBC, BMP 06/01/19 06:20 06/01/19 06:20 - ....Imaging EKG: Report Reviewed (Tele: ST) Problem List - Problems (1) Hypertension Code(s): I10 - ESSENTIAL (PRIMARY) HYPERTENSION Qualifiers: Hypertension type: essential hypertension Qualified Code(s): I10 - Essential (primary) hypertension (2) Sinus tachycardia Code(s): R00.0 - TACHYCARDIA, UNSPECIFIED (3) Acute pancreatitis Code(s): K85.90 - ACUTE PANCREATITIS WITHOUT NECROSIS OR INFECTION, UNSP Qualifiers: Pancreatitis type: other (4) Hyperglycemia Code(s): R73.9 - HYPERGLYCEMIA, UNSPECIFIED Assessment/Plan MRCP: No cholelithiasis or choledocholithiasis RUQ US with diffuse hepatic steatosis, mildly dilated CBD at 0.7, no biliary wall enlargement, no biliary calculus. CT abd/pelvis: Acute pancreatitis, distended bladder, diffuse hepatic steatosis. 1. Acute pancreatitis clinically improving, DDx includes IgG4 disease, CF heterozygosity and idiopathic pancreatitis 2. Hypertension 3. Reactive sinus tachycardia improving 4. Type 2 DM P:1. Off empiric abx, IVF, amylase/lipase are declining, clear liquids per GI 2. Continue Norvasc 5 qd 3. No specific treatment indicated for sinus tachycardia, treating underlying cause 4. CT with contrast at ~5 days to assess for necrosis, pseudoaneurysm, emerging pseudocyst, f/u IgG4
[2019-06-01] MEDS: amLODIPine BESYLATE 5 MG TABLET (FP) PO SCH (10:35)
--- NOTE | 2019-06-01 11:18 | PN ---
Progress Note, Physician History of Present Illness: patient stable wbc still high repeat imaging done awaiting for repeat imaging studies - Current Medication List Current Medications: Active Medications Amlodipine Besylate (Norvasc -) 5 mg PO DAILY [facility] Last Admin: 06/01/19 10:35 Dose: 5 mg Sodium Chloride (Normal Saline -) 1,000 mls @ 150 mls/hr IV ASDIR [facility] Last Admin: 05/30/19 10:00 Dose: 150 mls/hr Insulin Aspart (Novolog Vial Sliding Scale -) 1 vial SQ TIDAC [facility]; Protocol Last Admin: 06/01/19 06:12 Dose: Not Given Morphine Sulfate (Morphine Sulfate) 2 mg IVPUSH Q4H PRN PRN Reason: PAIN LEVEL 4 - 6 Last Admin: 05/31/19 00:27 Dose: 2 mg - Objective Vital Signs: Vital Signs Temperature 98.1 F 06/01/19 05:00 Pulse Rate 121 H 06/01/19 05:00 Respiratory Rate 18 06/01/19 05:00 Blood Pressure 154/88 06/01/19 05:00 O2 Sat by Pulse Oximetry (%) 95 05/31/19 21:00 Constitutional: Yes: No Distress, Calm Cardiovascular: Yes: S1, S2 Respiratory: Yes: Regular, CTA Bilaterally Gastrointestinal: Yes: Normal Bowel Sounds, Soft Musculoskeletal: Yes: WNL Extremities: Yes: WNL Neurological: Yes: Alert, Oriented Psychiatric: Yes: Alert, Oriented Labs: CBC, BMP 06/01/19 06:20 06/01/19 06:20 Assessment/Plan Problem List - Problems (1) Acute pancreatitis Code(s): K85.90 - ACUTE PANCREATITIS WITHOUT NECROSIS OR INFECTION, UNSP (2) Hyperglycemia Code(s): R73.9 - HYPERGLYCEMIA, UNSPECIFIED obesity abd pain plan continue current mgmt hydration
[2019-06-01 12:45] LABS: PLATELET ESTIMATE NORMAL
--- NOTE | 2019-06-01 14:23 | PN.GI ---
GI Progress Note Subjective: Tolerating clears No abdominal pain had CT scan - Objective Vital Signs: Vital Signs Temperature 98.1 F 06/01/19 09:00 Pulse Rate 117 H 06/01/19 09:00 Respiratory Rate 18 06/01/19 09:00 Blood Pressure 153/66 06/01/19 09:00 O2 Sat by Pulse Oximetry (%) 95 06/01/19 09:00 Constitutional: Calm Eyes: No: Sclera Icterus Cardiovascular: Yes: Tachycardia Respiratory: Yes: CTA Bilaterally ...Auscultate: Yes: Normoactive Bowel Sounds ...Palpate: Yes: Soft. No: Hepatomegaly, Splenomegaly, Tenderness Edema: No (No LE edema) Neurological: Yes: Alert, Oriented Labs: CBC, BMP 06/01/19 06:20 06/01/19 06:20 Hepatic Panel Total Bilirubin 0.6 mg/dL (0.2-1) 06/01/19 06:20 AST 23 U/L (15-37) 06/01/19 06:20 ALT 29 U/L (13-61) 06/01/19 06:20 Alkaline Phosphatase 56 U/L (45-117) 06/01/19 06:20 Albumin 2.0 g/dl (3.4-5.0) L 06/01/19 06:20 Problem List - Problems (1) Acute pancreatitis Assessment/Plan: Advanced diet If tolerating PO can D/C IV fluids in AM IgG4 pending Endocrine following Follow-up CT scan result Monitor CBC Code(s): K85.90 - ACUTE PANCREATITIS WITHOUT NECROSIS OR INFECTION, UNSP Qualifiers: Pancreatitis type: other
--- NOTE | 2019-06-01 17:31 | PN ---
Progress Note, Physician - Current Medication List Current Medications: Active Medications Amlodipine Besylate (Norvasc -) 5 mg PO DAILY [facility] Last Admin: 06/01/19 10:35 Dose: 5 mg Sodium Chloride (Normal Saline -) 1,000 mls @ 150 mls/hr IV ASDIR [facility] Last Admin: 05/30/19 10:00 Dose: 150 mls/hr Insulin Aspart (Novolog Vial Sliding Scale -) 1 vial SQ TIDAC [facility]; Protocol Last Admin: 06/01/19 12:43 Dose: Not Given Morphine Sulfate (Morphine Sulfate) 2 mg IVPUSH Q4H PRN PRN Reason: PAIN LEVEL 4 - 6 Last Admin: 05/31/19 00:27 Dose: 2 mg - Objective Vital Signs: Vital Signs Temperature 99.3 F 06/01/19 14:00 Pulse Rate 120 H 06/01/19 14:00 Respiratory Rate 18 06/01/19 14:00 Blood Pressure 135/92 06/01/19 14:00 O2 Sat by Pulse Oximetry (%) 95 06/01/19 09:00 Constitutional: Yes: No Distress HENT: Yes: Atraumatic Neck: Yes: Supple Cardiovascular: Yes: Regular Rate and Rhythm Respiratory: Yes: CTA Bilaterally Gastrointestinal: Yes: Normal Bowel Sounds Extremities: Yes: WNL Edema: No Peripheral Pulses WNL: Yes Neurological: Yes: Alert, Oriented Labs: CBC, BMP 06/01/19 06:20 06/01/19 06:20 Problem List - Problems (1) Acute pancreatitis Assessment/Plan: on diabetic diet will fu labs Code(s): K85.90 - ACUTE PANCREATITIS WITHOUT NECROSIS OR INFECTION, UNSP Qualifiers: Pancreatitis type: other (2) Hyperglycemia Assessment/Plan: monitor sugars endo consult Code(s): R73.9 - HYPERGLYCEMIA, UNSPECIFIED
[2019-06-02] MEDS: INSULIN SLIDING SCALE (NOVOLOG) 1 VIAL SQ SCH ×3 (06:29→17:17)
--- NOTE | 2019-06-02 07:32 | PN.GI ---
GI Progress Note Subjective: no new complaints ; tolerated diet denies abdominal pain nausea or vomiting - Objective Vital Signs: Vital Signs Temperature 98.8 F 06/02/19 05:50 Pulse Rate 116 H 06/02/19 05:50 Respiratory Rate 18 06/02/19 05:50 Blood Pressure 144/88 06/02/19 05:50 O2 Sat by Pulse Oximetry (%) 98 06/01/19 21:00 Constitutional: Well Nourished, No Distress Eyes: Yes: WNL HENT: Yes: WNL Neck: Yes: WNL Cardiovascular: Yes: WNL, Regular Rate and Rhythm Respiratory: Yes: WNL, Regular, CTA Bilaterally Gastrointestinal Inspection: Yes: WNL ...Auscultate: Yes: Normoactive Bowel Sounds Musculoskeletal: Yes: WNL Extremities: Yes: WNL Edema: No Labs: CBC, BMP 06/01/19 06:20 06/01/19 06:20 Problem List - Problems (1) Acute pancreatitis Assessment/Plan: 20 gram fat controlled diet repeat ct scan with pancreatic protocol in 6 weeks outpt GI /fu Code(s): K85.90 - ACUTE PANCREATITIS WITHOUT NECROSIS OR INFECTION, UNSP Qualifiers: Pancreatitis type: other
[2019-06-02 07:58] LABS: BASO % 0.5 % (0-2.0); EOS % 1.8 % (0-4.5); HEMATOCRIT 38.9 % (35.4-49); HEMOGLOBIN 13.1 GM/dL (11.7-16.9); LYMPH % 13.4 % (8-40); MCH 28.8 pg (25.7-33.7); MCHC 33.6 g/dl (32.0-35.9); MEAN CELL VOLUME 85.5 fl (80-96); MEAN PLT VOLUME 8.4 fl (7.5-11.1); MONO % 9.9 % (3.8-10.2); NEUT % 74.4 % (42.8-82.8); PLATELET COUNT 379 K/MM3 (134-434); RBC 4.55 M/mm3 (4.00-5.60); RDW 14.1 % (11.9-15.9); WHITE BLOOD COUNT 19.4 K/mm3 (4.0-10.0)
[2019-06-02 08:34] LABS: AMYLASE 88 U/L (25-115); LIPASE 718 U/L (73-393)
[2019-06-02] MEDS: amLODIPine BESYLATE 5 MG TABLET (FP) PO SCH (09:06)
[2019-06-02 11:12] LABS: ANISOCYTOSIS 1+; MACROCYTOSIS 0; PLATELET ESTIMATE NORMAL
[2019-06-02] MEDS ORDERED: INSULIN (NOVOLOG) ASPART 100 UNITS/ML 10ML VIAL ONE (11:49)
--- NOTE | 2019-06-02 13:25 | PN ---
Progress Note, Physician History of Present Illness: Pt states he feels well. Tolerating diet. Denies abd pain/n/v. Afebrile. - Current Medication List Current Medications: Active Medications Amlodipine Besylate (Norvasc -) 5 mg PO DAILY [facility] Last Admin: 06/02/19 09:06 Dose: 5 mg Sodium Chloride (Normal Saline -) 1,000 mls @ 150 mls/hr IV ASDIR [facility] Last Admin: 05/30/19 10:00 Dose: 150 mls/hr Insulin Aspart (Novolog Vial Sliding Scale -) 1 vial SQ TIDAC [facility]; Protocol Last Admin: 06/02/19 11:50 Dose: Not Given - Objective Vital Signs: Vital Signs Temperature 98.9 F 06/02/19 08:42 Pulse Rate 112 H 06/02/19 08:42 Respiratory Rate 18 06/02/19 08:45 Blood Pressure 142/90 06/02/19 08:42 O2 Sat by Pulse Oximetry (%) 98 06/02/19 08:45 Constitutional: Yes: No Distress, Calm Cardiovascular: Yes: Tachycardia Respiratory: Yes: Regular Gastrointestinal: Yes: Normal Bowel Sounds, Soft, Abdomen, Obese Genitourinary: Yes: WNL Extremities: Yes: WNL Edema: No Integumentary: Yes: WNL Neurological: Yes: Alert, Oriented Labs: CBC, BMP 06/02/19 06:45 06/01/19 06:20 Microbiology 05/29/19 12:10 Blood - Peripheral Venous Blood Culture - Preliminary NO GROWTH OBTAINED AFTER 96 HOURS, INCUBATION TO CONTINUE FOR 1 DAYS. 05/29/19 12:25 Blood - Peripheral Venous Blood Culture - Preliminary NO GROWTH OBTAINED AFTER 96 HOURS, INCUBATION TO CONTINUE FOR 1 DAYS. - ....Imaging Cat Scan: Report Reviewed Problem List - Problems (1) Acute pancreatitis Code(s): K85.90 - ACUTE PANCREATITIS WITHOUT NECROSIS OR INFECTION, UNSP Qualifiers: Pancreatitis type: other (2) Hyperglycemia Code(s): R73.9 - HYPERGLYCEMIA, UNSPECIFIED (3) Hypertension Code(s): I10 - ESSENTIAL (PRIMARY) HYPERTENSION Qualifiers: Hypertension type: essential hypertension Qualified Code(s): I10 - Essential (primary) hypertension (4) Sinus tachycardia Code(s): R00.0 - TACHYCARDIA, UNSPECIFIED Assessment/Plan -- WBC remains elevated, Pt tachycardic -- follow up repeat CT results -- continue monitor closely -- repeat cbc in a.m.
--- NOTE | 2019-06-02 14:56 | PN ---
Progress Note, Physician Chief Complaint: Not in distress History of Present Illness: Patient was seen and examined. Awake and alert. Chart was reviewed Denies chest pain, SOB or palpitations - Current Medication List Current Medications: Active Medications Amlodipine Besylate (Norvasc -) 5 mg PO DAILY [facility] Last Admin: 06/02/19 09:06 Dose: 5 mg Sodium Chloride (Normal Saline -) 1,000 mls @ 150 mls/hr IV ASDIR [facility] Last Admin: 05/30/19 10:00 Dose: 150 mls/hr Insulin Aspart (Novolog Vial Sliding Scale -) 1 vial SQ TIDAC [facility]; Protocol Last Admin: 06/02/19 11:50 Dose: Not Given - Objective Vital Signs: Vital Signs Temperature 98.4 F 06/02/19 14:20 Pulse Rate 117 H 06/02/19 14:20 Respiratory Rate 18 06/02/19 14:20 Blood Pressure 140/88 06/02/19 14:20 O2 Sat by Pulse Oximetry (%) 98 06/02/19 08:45 Eyes: Yes: PERRL HENT: Yes: Atraumatic Neck: Yes: Supple Cardiovascular: Yes: Tachycardia, S1, S2 Respiratory: Yes: CTA Bilaterally Gastrointestinal: Yes: Normal Bowel Sounds, Soft. No: Tenderness Edema: No Labs: CBC, BMP 06/02/19 06:45 06/01/19 06:20 Problem List - Problems (1) Acute pancreatitis Code(s): K85.90 - ACUTE PANCREATITIS WITHOUT NECROSIS OR INFECTION, UNSP Qualifiers: Pancreatitis type: other (2) Hyperglycemia Code(s): R73.9 - HYPERGLYCEMIA, UNSPECIFIED (3) Hypertension Code(s): I10 - ESSENTIAL (PRIMARY) HYPERTENSION Qualifiers: Hypertension type: essential hypertension Qualified Code(s): I10 - Essential (primary) hypertension (4) Sinus tachycardia Code(s): R00.0 - TACHYCARDIA, UNSPECIFIED Assessment/Plan 1. Acute pancreatitis clinically improving 2. Hypertension 3. Reactive sinus tachycardia 4. T2DM PLAN: 1. Supportive care 2. Continue Norvasc 5 mg QD 3. No specific treatment indicated for sinus tachycardia and continue treating underlying cause 4. CT with contrast at ~5 days to assess for necrosis, pseudoaneurysm, emerging pseudocyst and f/u IgG4 Maksim Laura MD
--- NOTE | 2019-06-02 15:39 | PN ---
Progress Note, Physician History of Present Illness: feeling good - Current Medication List Current Medications: Active Medications Amlodipine Besylate (Norvasc -) 5 mg PO DAILY [facility] Last Admin: 06/02/19 09:06 Dose: 5 mg Sodium Chloride (Normal Saline -) 1,000 mls @ 150 mls/hr IV ASDIR [facility] Last Admin: 05/30/19 10:00 Dose: 150 mls/hr Insulin Aspart (Novolog Vial Sliding Scale -) 1 vial SQ TIDAC [facility]; Protocol Last Admin: 06/02/19 11:50 Dose: Not Given - Objective Vital Signs: Vital Signs Temperature 98.4 F 06/02/19 14:20 Pulse Rate 117 H 06/02/19 14:20 Respiratory Rate 18 06/02/19 14:20 Blood Pressure 140/88 06/02/19 14:20 O2 Sat by Pulse Oximetry (%) 98 06/02/19 08:45 Constitutional: Yes: No Distress HENT: Yes: Atraumatic Neck: Yes: Supple Cardiovascular: Yes: Regular Rate and Rhythm Respiratory: Yes: CTA Bilaterally Gastrointestinal: Yes: Normal Bowel Sounds Extremities: Yes: WNL Edema: No Peripheral Pulses WNL: Yes Neurological: Yes: Alert, Oriented Labs: CBC, BMP 06/02/19 06:45 06/01/19 06:20 Problem List - Problems (1) Acute pancreatitis Assessment/Plan: on diabetic diet will fu labs resolving but wbc still elevated Code(s): K85.90 - ACUTE PANCREATITIS WITHOUT NECROSIS OR INFECTION, UNSP Qualifiers: Pancreatitis type: other (2) Hyperglycemia Assessment/Plan: monitor sugars endo consult Code(s): R73.9 - HYPERGLYCEMIA, UNSPECIFIED
[2019-06-03] MEDS: INSULIN SLIDING SCALE (NOVOLOG) 1 VIAL SQ SCH ×3 (06:21→17:26)
[2019-06-03 06:58] LABS: BASO % 0.4 % (0-2.0); EOS % 1.8 % (0-4.5); HEMATOCRIT 38.6 % (35.4-49); HEMOGLOBIN 12.8 GM/dL (11.7-16.9); LYMPH % 12.7 % (8-40); MCH 28.2 pg (25.7-33.7); MCHC 33.3 g/dl (32.0-35.9); MEAN CELL VOLUME 84.9 fl (80-96); MEAN PLT VOLUME 8.2 fl (7.5-11.1); MONO % 10.1 % (3.8-10.2); PLATELET COUNT 405 K/MM3 (134-434); RBC 4.54 M/mm3 (4.00-5.60); RDW 13.9 % (11.9-15.9); WHITE BLOOD COUNT 19.3 K/mm3 (4.0-10.0)
[2019-06-03 07:31] LABS: ALBUMIN 1.9 g/dl (3.4-5.0); BILIRUBIN,TOTAL 0.4 mg/dL (0.2-1); BLOOD UREA NITROGEN 10.5 mg/dL (7-18); CALCIUM 8.4 mg/dL (8.5-10.1); CREATININE 0.9 mg/dL (0.55-1.3); POTASSIUM 3.4 mmol/L (3.5-5.1)
[2019-06-03 07:36] LABS: CHOLESTEROL 220 mg/dL (50-200); HDL CHOLESTEROL 28 mg/dL (40-60); LDL CHOLESTEROL (ONLY DFH) 149 mg/dl (5-100); TRIGLYCERIDES 215 mg/dL (0-150)
--- NOTE | 2019-06-03 07:41 | PN.GI ---
GI Progress Note Subjective: NO NEW COMPLAINTS - DENIES ABDOMINAL PAIN / FEVER / CHILLS/ NAUSEA OR VOMITING. HE IS TOLERATING DIET - Objective Vital Signs: Vital Signs Temperature 99.2 F 06/03/19 06:00 Pulse Rate 125 H 06/03/19 06:00 Respiratory Rate 18 06/03/19 06:00 Blood Pressure 156/103 H 06/03/19 06:00 O2 Sat by Pulse Oximetry (%) 99 06/02/19 21:00 Constitutional: Well Nourished, No Distress Eyes: Yes: WNL HENT: Yes: WNL Neck: Yes: WNL Cardiovascular: Yes: WNL Respiratory: Yes: WNL, Regular, CTA Bilaterally Gastrointestinal Inspection: Yes: WNL ...Auscultate: Yes: Normoactive Bowel Sounds, Other (NOT TENDER) Extremities: Yes: WNL Edema: No Labs: CBC, BMP 06/03/19 06:24 Problem List - Problems (1) Acute pancreatitis Assessment/Plan: - CT SCAN FROM 05/31 REVIEWED WITH RADIOLOGY ? THROMBUS IN THE PORTAL SYSTEM NO NECROSIS -- ORDERED MRI WITH CONTRAST TO FURTHER EVALUATE. (PRELIMINARY REPORT YESTERDAY WAS WNL) STILL WITH SIGNIFICANT LEUKOCYTOSIS - PANCULTURE / IVF'S / ID F/U AM CBC CMET Code(s): K85.90 - ACUTE PANCREATITIS WITHOUT NECROSIS OR INFECTION, UNSP Qualifiers: Pancreatitis type: other
--- NOTE | 2019-06-03 08:42 | PN ---
Progress Note, Physician Chief Complaint: Not in distress History of Present Illness: Patient was seen and examined. Awake and alert. Chart was reviewed Denies chest pain, SOB or palpitations Still remains tachycardic - Current Medication List Current Medications: Active Medications Amlodipine Besylate (Norvasc -) 5 mg PO DAILY [facility] Last Admin: 06/02/19 09:06 Dose: 5 mg Insulin Aspart (Novolog Vial Sliding Scale -) 1 vial SQ TIDAC [facility]; Protocol Last Admin: 06/03/19 06:21 Dose: Not Given - Objective Vital Signs: Vital Signs Temperature 98.8 F 06/03/19 08:39 Pulse Rate 109 H 06/03/19 08:39 Respiratory Rate 18 06/03/19 08:39 Blood Pressure 154/82 06/03/19 08:39 O2 Sat by Pulse Oximetry (%) 99 06/02/19 21:00 Eyes: Yes: PERRL HENT: Yes: Atraumatic Neck: Yes: Supple Cardiovascular: Yes: Tachycardia, S1, S2 Respiratory: Yes: CTA Bilaterally Gastrointestinal: Yes: Normal Bowel Sounds, Soft. No: Tenderness Edema: No Labs: CBC, BMP 06/03/19 06:24 06/03/19 06:24 Problem List - Problems (1) Acute pancreatitis Code(s): K85.90 - ACUTE PANCREATITIS WITHOUT NECROSIS OR INFECTION, UNSP Qualifiers: Pancreatitis type: other (2) Hyperglycemia Code(s): R73.9 - HYPERGLYCEMIA, UNSPECIFIED (3) Hypertension Code(s): I10 - ESSENTIAL (PRIMARY) HYPERTENSION Qualifiers: Hypertension type: essential hypertension Qualified Code(s): I10 - Essential (primary) hypertension (4) Sinus tachycardia Code(s): R00.0 - TACHYCARDIA, UNSPECIFIED Assessment/Plan 1. Acute pancreatitis clinically improving 2. Hypertension 3. Reactive sinus tachycardia 4. T2DM PLAN: 1. Supportive care 2. Continue Norvasc 5 mg QD as tolerated 3. No specific treatment indicated for sinus tachycardia and continue treating underlying cause Continue present care Maksim Laura MD
[2019-06-03] MEDS: amLODIPine BESYLATE 5 MG TABLET (FP) PO SCH (09:42)
[2019-06-03 10:04] LABS: ANISOCYTOSIS 1+; MACROCYTOSIS 0; PLATELET ESTIMATE NORMAL
[2019-06-03] MEDS ORDERED: POTASSIUM CHLORIDE TABS 20 MEQ TABLET.ER (FP) PO ONE (10:45)
--- NOTE | 2019-06-03 14:02 | PN ---
Progress Note, Physician History of Present Illness: Pt remains alert, without distress. Denies abd pain/n/v. WBC remains elevated. No specific complaints. - Current Medication List Current Medications: Active Medications Amlodipine Besylate (Norvasc -) 5 mg PO DAILY [facility] Last Admin: 06/03/19 09:42 Dose: 5 mg Insulin Aspart (Novolog Vial Sliding Scale -) 1 vial SQ TIDAC [facility]; Protocol Last Admin: 06/03/19 12:13 Dose: Not Given - Objective Vital Signs: Vital Signs Temperature 98.8 F 06/03/19 08:39 Pulse Rate 109 H 06/03/19 08:39 Respiratory Rate 18 06/03/19 09:00 Blood Pressure 154/82 06/03/19 08:39 O2 Sat by Pulse Oximetry (%) 99 06/03/19 09:00 Constitutional: Yes: No Distress, Calm Cardiovascular: Yes: Regular Rate and Rhythm Respiratory: Yes: CTA Bilaterally Gastrointestinal: Yes: Normal Bowel Sounds, Soft Genitourinary: Yes: WNL Extremities: Yes: WNL Integumentary: Yes: WNL Neurological: Yes: Alert, Oriented Labs: CBC, BMP 06/03/19 06:24 06/03/19 06:24 CMP Sodium 136 mmol/L (136-145) 06/03/19 06:24 Potassium 3.4 mmol/L (3.5-5.1) L 06/03/19 06:24 Chloride 101 mmol/L (98-107) 06/03/19 06:24 Carbon Dioxide 25 mmol/L (21-32) 06/03/19 06:24 Anion Gap 10 MMOL/L (8-16) 06/03/19 06:24 BUN 10.5 mg/dL (7-18) 06/03/19 06:24 Creatinine 0.9 mg/dL (0.55-1.3) 06/03/19 06:24 Est GFR (CKD-EPI)AfAm 143.00 06/03/19 06:24 Est GFR (CKD-EPI)NonAf 123.38 06/03/19 06:24 POC Glucometer 178 UNITS (80-120) 06/03/19 12:08 Random Glucose 195 mg/dL (74-106) H 06/03/19 06:24 Hemoglobin A1c % 9.0 % (4.2-6.3) H 05/29/19 05:50 Lactic Acid 1.8 mmol/L (0.4-2.0) 05/28/19 18:41 Calcium 8.4 mg/dL (8.5-10.1) L 06/03/19 06:24 Total Bilirubin 0.4 mg/dL (0.2-1) 06/03/19 06:24 AST 32 U/L (15-37) 06/03/19 06:24 ALT 49 U/L (13-61) 06/03/19 06:24 Alkaline Phosphatase 81 U/L (45-117) 06/03/19 06:24 Total Protein 6.0 g/dl (6.4-8.2) L 06/03/19 06:24 Albumin 1.9 g/dl (3.4-5.0) L 06/03/19 06:24 Triglycerides 215 mg/dL (0-150) H 06/03/19 06:24 Cholesterol 220 mg/dL (50-200) H 06/03/19 06:24 Total LDL Cholesterol 149 mg/dl (5-100) H 06/03/19 06:24 HDL Cholesterol 28 mg/dL (40-60) L 06/03/19 06:24 Total Amylase 88 U/L (25-115) 06/02/19 06:45 Lipase 718 U/L (73-393) H 06/02/19 06:45 Microbiology 05/29/19 12:10 Blood - Peripheral Venous Blood Culture - Final NO GROWTH AFTER 5 DAYS INCUBATION 05/29/19 12:25 Blood - Peripheral Venous Blood Culture - Final NO GROWTH AFTER 5 DAYS INCUBATION Problem List - Problems (1) Acute pancreatitis Code(s): K85.90 - ACUTE PANCREATITIS WITHOUT NECROSIS OR INFECTION, UNSP Qualifiers: Pancreatitis type: other (2) Hyperglycemia Code(s): R73.9 - HYPERGLYCEMIA, UNSPECIFIED (3) Hypertension Code(s): I10 - ESSENTIAL (PRIMARY) HYPERTENSION Qualifiers: Hypertension type: essential hypertension Qualified Code(s): I10 - Essential (primary) hypertension (4) Sinus tachycardia Code(s): R00.0 - TACHYCARDIA, UNSPECIFIED Assessment/Plan -- WBC remains elevated but stable -- Latest CT without pancreatic necrosis -- continue monitor -- GI f/u
--- NOTE | 2019-06-03 16:03 | PN ---
Progress Note, Physician History of Present Illness: feeling good - Current Medication List Current Medications: Active Medications Amlodipine Besylate (Norvasc -) 5 mg PO DAILY [facility] Last Admin: 06/03/19 09:42 Dose: 5 mg Insulin Aspart (Novolog Vial Sliding Scale -) 1 vial SQ TIDAC [facility]; Protocol Last Admin: 06/03/19 12:13 Dose: Not Given - Objective Vital Signs: Vital Signs Temperature 98.6 F 06/03/19 14:54 Pulse Rate 120 H 06/03/19 14:54 Respiratory Rate 18 06/03/19 14:54 Blood Pressure 150/88 06/03/19 14:54 O2 Sat by Pulse Oximetry (%) 99 06/03/19 09:00 Constitutional: Yes: No Distress HENT: Yes: Atraumatic Neck: Yes: Supple Cardiovascular: Yes: Regular Rate and Rhythm Respiratory: Yes: CTA Bilaterally Gastrointestinal: Yes: Normal Bowel Sounds Extremities: Yes: WNL Neurological: Yes: Alert, Oriented Labs: CBC, BMP 06/03/19 06:24 06/03/19 06:24 Problem List - Problems (1) Acute pancreatitis Assessment/Plan: wbc still elevated ct scan reviewed d/w gi mri pending...possible clot? will get heme consult iv hydration Code(s): K85.90 - ACUTE PANCREATITIS WITHOUT NECROSIS OR INFECTION, UNSP Qualifiers: Pancreatitis type: other (2) Hyperglycemia Assessment/Plan: monitor sugars endo consult Code(s): R73.9 - HYPERGLYCEMIA, UNSPECIFIED
--- NOTE | 2019-06-03 19:53 | CONSULT ---
Consult - text type - Consultation Consultation Note: 18 y/o male with h/o HTN not on medications who presenting with epigastric abdominal pain. Pt found to have acute pancreatitis/hyperglycemia and hypertriglyceridemia we have been consulted for probable nonocclusive thombus at the junctionof portal v. and smv he feels well today and denies any c/o reports alcohol use few days prio to admission - Smoking History Smoking history: Never smoked Home Medications - Allergies Allergies/Adverse Reactions: Allergies Allergy/AdvReac Type Severity Reaction Status Date / Time No Known Allergies Allergy Verified 05/28/19 13:58 - Home Medications Home Medications: Ambulatory Orders NK [No Known Home Medication] 05/28/19 Vital Signs: Last Vital Signs Temp Pulse Resp BP Pulse Ox 98.2 F 124 H 20 152/88 99 06/03/19 17:00 06/03/19 17:00 06/03/19 17:00 06/03/19 17:00 06/03/19 09:00 Cor: RSR, No murmurs, No gallops Lungs: Clear to P&A Abd: Soft, Normal bowel sounds, No organomegaly Ext:No significant edema Labs/Meds reviewed Active Medications Generic Name Dose Route Start Last Admin Trade Name Freq PRN Reason Stop Dose Admin Amlodipine Besylate 5 mg 05/29/19 19:15 06/03/19 09:42 Norvasc - PO 5 mg DAILY [facility] Administration Sodium Chloride 1,000 mls @ 100 mls/hr 06/03/19 16:15 Normal Saline - IV ASDIR [facility] Insulin Aspart 1 vial 05/30/19 16:30 06/03/19 17:26 Novolog Vial Sliding Scale - SQ Not Given TIDAC [facility] Protocol A/P Acute Pancreatitis HTN Hypertriglyceridemia CT SCAN FROM 05/31 ? ? Small nonocclusive THROMBUS at the junction of portal and SMV. NO NECROSIS f/u MRI Portal- SMV thrombosis develops in about half of patients with necrotizing acute pancreatitis and is rare in the absence of necrosis. No clear cut guidelines/data on administration of anticoagulation in this setting . Based on literature search despite infrequent administration of anticoagulants, complications directly related to PSMVT are rare. Will follow up MRI discussed with patient and his mother. discussed abstaining from alcohol
[2019-06-03] MEDS: SODIUM CHLORIDE 1,000 ML IV SCH (22:18)
[2019-06-04] MEDS: INSULIN SLIDING SCALE (NOVOLOG) 1 VIAL SQ SCH ×3 (06:13→16:41)
[2019-06-04 06:48] LABS: BASO % 0.5 % (0-2.0); EOS % 1.6 % (0-4.5); HEMATOCRIT 38.9 % (35.4-49); MCH 28.2 pg (25.7-33.7); MCHC 33.4 g/dl (32.0-35.9); MEAN CELL VOLUME 84.5 fl (80-96); MEAN PLT VOLUME 8.3 fl (7.5-11.1); MONO % 10.4 % (3.8-10.2); NEUT % 75.5 % (42.8-82.8); PLATELET COUNT 434 K/MM3 (134-434); RDW 13.7 % (11.9-15.9); WHITE BLOOD COUNT 19.6 K/mm3 (4.0-10.0)
[2019-06-04 07:08] LABS: ALBUMIN 1.8 g/dl (3.4-5.0); BILIRUBIN,TOTAL 0.4 mg/dL (0.2-1); BLOOD UREA NITROGEN 12.2 mg/dL (7-18); CALCIUM 8.9 mg/dL (8.5-10.1); CREATININE 0.8 mg/dL (0.55-1.3); POTASSIUM 3.7 mmol/L (3.5-5.1); TOT PROT 6.2 g/dl (6.4-8.2)
[2019-06-04 09:34] LABS: ANISOCYTOSIS 1+; MACROCYTOSIS 0; PLATELET ESTIMATE NORMAL
--- NOTE | 2019-06-04 09:36 | PN ---
Progress Note, Physician History of Present Illness: Epigastric abdominal pain, nausea and emesis resolved with bowel rest, IVF and abx. Sinus tachycardia also improving. Tolerating daibetic diet. - Current Medication List Current Medications: Active Medications Amlodipine Besylate (Norvasc -) 5 mg PO DAILY [facility] Last Admin: 06/03/19 09:42 Dose: 5 mg Sodium Chloride (Normal Saline -) 1,000 mls @ 100 mls/hr IV ASDIR [facility] Last Admin: 06/03/19 22:18 Dose: 100 mls/hr Insulin Aspart (Novolog Vial Sliding Scale -) 1 vial SQ TIDAC [facility]; Protocol Last Admin: 06/04/19 06:13 Dose: Not Given - Objective Vital Signs: Vital Signs Temperature 98.4 F 06/04/19 08:58 Pulse Rate 121 H 06/04/19 08:58 Respiratory Rate 20 06/04/19 08:58 Blood Pressure 149/99 06/04/19 08:58 O2 Sat by Pulse Oximetry (%) 99 06/04/19 09:00 Constitutional: Yes: No Distress, Calm Neck: Yes: Supple Cardiovascular: Yes: Regular Rate and Rhythm, Tachycardia Respiratory: Yes: Regular, CTA Bilaterally Gastrointestinal: Yes: Normal Bowel Sounds, Soft Edema: No Labs: CBC, BMP 06/04/19 06:12 06/04/19 06:12 - ....Imaging EKG: Report Reviewed (Tele: ST) Problem List - Problems (1) Hypertension Code(s): I10 - ESSENTIAL (PRIMARY) HYPERTENSION Qualifiers: Hypertension type: essential hypertension Qualified Code(s): I10 - Essential (primary) hypertension (2) Sinus tachycardia Code(s): R00.0 - TACHYCARDIA, UNSPECIFIED (3) Acute pancreatitis Code(s): K85.90 - ACUTE PANCREATITIS WITHOUT NECROSIS OR INFECTION, UNSP Qualifiers: Pancreatitis type: other (4) Hyperglycemia Code(s): R73.9 - HYPERGLYCEMIA, UNSPECIFIED Assessment/Plan Abd MRI: Acute pancreatitis with non-obstructive splenic vein thrombosis MRCP: No cholelithiasis or choledocholithiasis RUQ US with diffuse hepatic steatosis, mildly dilated CBD at 0.7, no biliary wall enlargement, no biliary calculus. CT abd/pelvis: Acute pancreatitis, distended bladder, diffuse hepatic steatosis. 1. Acute pancreatitis with non-obstructive splenic vein thrombosis clinically improving 2. Hypertension 3. Reactive sinus tachycardia 4. T2DM PLAN: 1. Supportive care 2. Continue Norvasc 5 mg QD as tolerated 3. No specific treatment indicated for sinus tachycardia and continue treating underlying cause 4. Anticoagulation not indicated for splenic vein thrombosis in context of acute pancreatitis 5. Repeat ct scan with pancreatic protocol in 6 weeks 6. D/c telemetry monitoring
[2019-06-04] MEDS: SODIUM CHLORIDE 1,000 ML IV SCH (09:50)
[2019-06-04] MEDS: amLODIPine BESYLATE 5 MG TABLET (FP) PO SCH (09:50)
--- NOTE | 2019-06-04 13:28 | PN ---
Progress Note (short form) - Note Progress Note: Patient seen and examined Pain free Tolerating PO Vital Signs Temp 98.4 F 06/04/19 08:58 Pulse 121 H 06/04/19 08:58 Resp 20 06/04/19 08:58 BP 149/99 06/04/19 08:58 Pulse Ox 99 06/04/19 09:00 NAD Abd soft NT ND CBC, BMP 06/04/19 06:12 06/04/19 06:12 I was called by Dr. Casey this am re MRI results with non-occlusive thrombus in splenic vein Impression - acute pancreatitis c/b splenic vein thrombus. Clinically defervesced. - D/Samuel IVF - Given age and lack of comorbidities, I think it would be appropriate to anticoagulate for this non-occlusive splenic vein thrombus. Otherwise, run the risk of non-cirrhotic portal HTN. I told this to Dr. Casey this am and I have left a message for Dr. Keane in this regard.
[2019-06-04] MEDS ORDERED: HEPARIN NA (PORCINE) 5,000 UNITS/ML 1ML VIAL IVPUSH PRN (13:45)
--- NOTE | 2019-06-04 14:01 | PN ---
Progress Note (short form) - Note Progress Note: Feels good Denies any complaints No abd pain , No NV Vital Signs Period Temp Pulse Resp BP Sys/Powell Pulse Ox Last 24 Hr 97.8 F-99.4 F 114-124 18-20 137-152/80-99 99-99 PE: AOx3 Neck: supple, No JVD HEENT: EOMI Lungs: CTA CVS: S1S2 Abd: Benign, NT, +BS Ext: No edema Neuro: No focal deficit CMP Sodium 138 mmol/L (136-145) 06/04/19 06:12 Potassium 3.7 mmol/L (3.5-5.1) 06/04/19 06:12 Chloride 104 mmol/L (98-107) 06/04/19 06:12 Carbon Dioxide 21 mmol/L (21-32) 06/04/19 06:12 Anion Gap 13 MMOL/L (8-16) 06/04/19 06:12 BUN 12.2 mg/dL (7-18) 06/04/19 06:12 Creatinine 0.8 mg/dL (0.55-1.3) 06/04/19 06:12 Est GFR (CKD-EPI)AfAm 150.09 06/04/19 06:12 Est GFR (CKD-EPI)NonAf 129.50 06/04/19 06:12 POC Glucometer 186 UNITS (80-120) 06/04/19 11:44 Random Glucose 177 mg/dL (74-106) H 06/04/19 06:12 Hemoglobin A1c % 9.0 % (4.2-6.3) H 05/29/19 05:50 Lactic Acid 1.8 mmol/L (0.4-2.0) 05/28/19 18:41 Calcium 8.9 mg/dL (8.5-10.1) 06/04/19 06:12 Total Bilirubin 0.4 mg/dL (0.2-1) 06/04/19 06:12 AST 29 U/L (15-37) 06/04/19 06:12 ALT 45 U/L (13-61) 06/04/19 06:12 Alkaline Phosphatase 80 U/L (45-117) 06/04/19 06:12 Total Protein 6.2 g/dl (6.4-8.2) L 06/04/19 06:12 Albumin 1.8 g/dl (3.4-5.0) L 06/04/19 06:12 Triglycerides 215 mg/dL (0-150) H 06/03/19 06:24 Cholesterol 220 mg/dL (50-200) H 06/03/19 06:24 Total LDL Cholesterol 149 mg/dl (5-100) H 06/03/19 06:24 HDL Cholesterol 28 mg/dL (40-60) L 06/03/19 06:24 Total Amylase 88 U/L (25-115) 06/02/19 06:45 Lipase 718 U/L (73-393) H 06/02/19 06:45 Current Medications Generic Name Dose Route Start Last Admin Trade Name Freq PRN Reason Stop Dose Admin Amlodipine Besylate 5 mg 05/29/19 19:15 06/04/19 09:50 Norvasc - PO 5 mg DAILY [facility] Administration Heparin Sodium (Porcine) 1,000 unit 06/04/19 13:45 Heparin - IVPUSH PRN PRN Heparin Heparin Sodium (Porcine) 5,000 unit 06/04/19 13:45 Heparin - IVPUSH PRN PRN Heparin Heparin Sodium (Porcine) 25, 500 mls @ 20 mls/hr 06/04/19 15:00 000 unit/ Sodium Chloride IV TITR [facility] Protocol 1,000 UNIT/HR Insulin Aspart 1 vial 05/30/19 16:30 06/04/19 11:50 Novolog Vial Sliding Scale - SQ Not Given TIDAC [facility] Protocol A/P Acute Pancreatitis/Splenic vein occlusion New Onset DM: A1c 9.0 HTN Hypertriglyceridemia Teach pt to self monitor blood glucose and self inject insulin Nutrition consult BGM QACHS Novolog SS coverage Start Levemir 6 units daily at HS Will F/U
--- NOTE | 2019-06-04 14:08 | PN ---
Physical Exam: Heme/Onc Service SUBJECTIVE: Patient seen and examined at bedside. No acute events. Pt feels normal now. OBJECTIVE: Vital Signs Period Temp Pulse Resp BP Sys/Powell Pulse Ox Last 24 Hr 97.8 F-99.4 F 114-124 18-20 137-152/80-99 99-99 Gen: AAOx3, NAD HEENT: NCAT, PERRL, EOMI Neck: supple, no jvd Cardio: tachycardic, normal s1s2, no mrg Pulm: cta b/l Abd: obese, nontender, nondistended, soft Testicular: no enlargement, nodularity Ext: no edema Laboratory Results - last 24 hr 06/03/19 06/03/19 06/04/19 17:23 20:57 06:05 WBC RBC Hgb Hct MCV MCH MCHC RDW Plt Count MPV Absolute Neuts (auto) Neutrophils % Neutrophils % (Manual) Band Neutrophils % Lymphocytes % Lymphocytes % (Manual) Monocytes % Monocytes % (Manual) Eosinophils % Eosinophils % (Manual) Basophils % Basophils % (Manual) Myelocytes % (Man) Promyelocytes % (Man) Blast Cells % (Manual) Nucleated RBC % Metamyelocytes Hypochromia Platelet Estimate Polychromasia Poikilocytosis Anisocytosis Microcytosis Macrocytosis Sodium Potassium Chloride Carbon Dioxide Anion Gap BUN Creatinine Est GFR (CKD-EPI)AfAm Est GFR (CKD-EPI)NonAf POC Glucometer 149 166 172 Random Glucose Calcium Total Bilirubin AST ALT Alkaline Phosphatase Total Protein Albumin 06/04/19 06/04/19 06/04/19 06:12 06:12 11:44 WBC 19.6 H RBC 4.60 Hgb 13.0 Hct 38.9 MCV 84.5 MCH 28.2 MCHC 33.4 RDW 13.7 Plt Count 434 MPV 8.3 Absolute Neuts (auto) 14.8 H Neutrophils % 75.5 Neutrophils % (Manual) 74.0 Band Neutrophils % 6.3 Lymphocytes % 12.0 Lymphocytes % (Manual) 8.3 Monocytes % 10.4 H Monocytes % (Manual) 5 Eosinophils % 1.6 Eosinophils % (Manual) 0.0 D Basophils % 0.5 Basophils % (Manual) 0.0 Myelocytes % (Man) 1 Promyelocytes % (Man) 0 Blast Cells % (Manual) 0 Nucleated RBC % 0 Metamyelocytes 2 D Hypochromia 0 Platelet Estimate Normal Polychromasia 1+ Poikilocytosis 0 Anisocytosis 1+ Microcytosis 0 Macrocytosis 0 Sodium 138 Potassium 3.7 Chloride 104 Carbon Dioxide 21 Anion Gap 13 BUN 12.2 Creatinine 0.8 Est GFR (CKD-EPI)AfAm 150.09 Est GFR (CKD-EPI)NonAf 129.50 POC Glucometer 186 Random Glucose 177 H Calcium 8.9 Total Bilirubin 0.4 AST 29 ALT 45 Alkaline Phosphatase 80 Total Protein 6.2 L Albumin 1.8 L Active Medications Generic Name Dose Route Start Last Admin Trade Name Freq PRN Reason Stop Dose Admin Amlodipine Besylate 5 mg 05/29/19 19:15 06/04/19 09:50 Norvasc - PO 5 mg DAILY VAL Administration Heparin Sodium (Porcine) 1,000 unit 06/04/19 13:45 Heparin - IVPUSH PRN PRN Heparin Heparin Sodium (Porcine) 5,000 unit 06/04/19 13:45 Heparin - IVPUSH PRN PRN Heparin Heparin Sodium (Porcine) 25, 500 mls @ 20 mls/hr 06/04/19 15:00 000 unit/ Sodium Chloride IV TITR VAL Protocol 1,000 UNIT/HR Insulin Aspart 1 vial 05/30/19 16:30 06/04/19 11:50 Novolog Vial Sliding Scale - SQ Not Given TIDAC [facility] Protocol ASSESSMENT/PLAN: Pt is a 18 y/o M with PMH HTN, DM, HLD who presented to hospital with abd pain. He was admitted for acute pancreatitis complicated by SMV thrombosis. Heme/Onc was called to evaluate for portal vein clot. SMV thrombosis -noted as a concern on CT abdomen -unlikely in the absence of necrosis -would not anticoagulate -repeat MRI significant for pancreatitis, likely splenic vein thrombus, and hepatic steatosis Pancreatitis -c/w supportive care Visit type - Emergency Visit Emergency Visit: No - New Patient This patient is new to me today: Yes Date on this admission: 06/04/19 - Critical Care Critical Care patient: No ATTENDING PHYSICIAN STATEMENT I saw and evaluated the patient. I reviewed the resident's note and discussed the case with the resident. I agree with the resident's findings and plan as documented. SUBJECTIVE: OBJECTIVE: ASSESSMENT AND PLAN:
--- NOTE | 2019-06-04 14:42 | PN ---
Progress Note, Physician History of Present Illness: stable no new issues wbc still high - Current Medication List Current Medications: Active Medications Amlodipine Besylate (Norvasc -) 5 mg PO DAILY [facility] Last Admin: 06/04/19 09:50 Dose: 5 mg Heparin Sodium (Porcine) (Heparin -) 1,000 unit IVPUSH PRN PRN PRN Reason: Heparin Heparin Sodium (Porcine) (Heparin -) 5,000 unit IVPUSH PRN PRN PRN Reason: Heparin Heparin Sodium (Porcine) 25, (000 unit/ Sodium Chloride) 500 mls @ 20 mls/hr IV TITR VAL; Protocol Insulin Aspart (Novolog Vial Sliding Scale -) 1 vial SQ TIDAC [facility]; Protocol Last Admin: 06/04/19 11:50 Dose: Not Given Insulin Detemir (Levemir Vial) 6 units SQ HS VAL - Objective Vital Signs: Vital Signs Temperature 98.4 F 06/04/19 08:58 Pulse Rate 121 H 06/04/19 08:58 Respiratory Rate 20 06/04/19 08:58 Blood Pressure 149/99 06/04/19 08:58 O2 Sat by Pulse Oximetry (%) 99 06/04/19 09:00 Constitutional: Yes: No Distress, Calm Cardiovascular: Yes: S1, S2 Respiratory: Yes: Regular, CTA Bilaterally Gastrointestinal: Yes: Hypoactive Bowel Sounds Musculoskeletal: Yes: WNL Extremities: Yes: WNL Neurological: Yes: Alert, Oriented Psychiatric: Yes: Alert, Oriented Labs: CBC, BMP 06/04/19 06:12 06/04/19 06:12 Assessment/Plan Problem List - Problems (1) Acute pancreatitis Code(s): K85.90 - ACUTE PANCREATITIS WITHOUT NECROSIS OR INFECTION, UNSP Qualifiers: Pancreatitis type: other (2) Hyperglycemia Code(s): R73.9 - HYPERGLYCEMIA, UNSPECIFIED (3) Hypertension Code(s): I10 - ESSENTIAL (PRIMARY) HYPERTENSION Qualifiers: Hypertension type: essential hypertension Qualified Code(s): I10 - Essential (primary) hypertension (4) Sinus tachycardia Code(s): R00.0 - TACHYCARDIA, UNSPECIFIED Assessment/Plan -- WBC remains elevated but stable -- Latest CT without pancreatic necrosis -- continue monitor -- GI f/u
[2019-06-04] MEDS: HEPARIN - 25,000 UNIT in SODIUM CHLORIDE 495 ML IV SCH (14:44)
[2019-06-04 16:21] LABS: INR 1.23 (0.83-1.09); PROTHROMBIN TIME (PATIENT) 14.6 SEC (9.7-13.0)
[2019-06-04 16:23] LABS: ACTIVATED PTT 32.7 SECONDS (25.2-36.5)
--- NOTE | 2019-06-04 17:20 | PN ---
Progress Note, Physician - Current Medication List Current Medications: Active Medications Amlodipine Besylate (Norvasc -) 5 mg PO DAILY [facility] Last Admin: 06/04/19 09:50 Dose: 5 mg Heparin Sodium (Porcine) (Heparin -) 1,000 unit IVPUSH PRN PRN PRN Reason: Heparin Heparin Sodium (Porcine) (Heparin -) 5,000 unit IVPUSH PRN PRN PRN Reason: Heparin Heparin Sodium (Porcine) 25, (000 unit/ Sodium Chloride) 500 mls @ 20 mls/hr IV TITR VAL; Protocol Last Admin: 06/04/19 14:44 Dose: 1,000 unit/hr, 20 mls/hr Insulin Aspart (Novolog Vial Sliding Scale -) 1 vial SQ TIDAC [facility]; Protocol Last Admin: 06/04/19 16:41 Dose: Not Given Insulin Detemir (Levemir Vial) 6 units SQ HS VAL - Objective Vital Signs: Vital Signs Temperature 98.2 F 06/04/19 14:00 Pulse Rate 125 H 06/04/19 14:00 Respiratory Rate 20 06/04/19 14:00 Blood Pressure 148/82 06/04/19 14:00 O2 Sat by Pulse Oximetry (%) 99 06/04/19 09:00 HENT: Yes: Atraumatic Neck: Yes: Supple Cardiovascular: Yes: Regular Rate and Rhythm Respiratory: Yes: CTA Bilaterally Gastrointestinal: Yes: Normal Bowel Sounds Extremities: Yes: WNL Edema: No Neurological: Yes: Alert, Oriented Labs: CBC, BMP 06/04/19 06:12 06/04/19 06:12 INR, PTT INR 1.23 (0.83-1.09) H 06/04/19 15:15 Fibrinogen > 500.0 mg/dL (238-498) H 06/04/19 15:15 Problem List - Problems (1) Acute pancreatitis Assessment/Plan: wbc still elevated ct scan reviewed d/w gi mri pending...possible clot? will get heme consult iv hydration Code(s): K85.90 - ACUTE PANCREATITIS WITHOUT NECROSIS OR INFECTION, UNSP Qualifiers: Pancreatitis type: other (2) Hyperglycemia Assessment/Plan: monitor sugars endo consult Code(s): R73.9 - HYPERGLYCEMIA, UNSPECIFIED (3) Hypertension Assessment/Plan: on meds monitor Code(s): I10 - ESSENTIAL (PRIMARY) HYPERTENSION Qualifiers: Hypertension type: essential hypertension Qualified Code(s): I10 - Essential (primary) hypertension (4) Splenic vein thrombosis Assessment/Plan: iv heparin heme consult Code(s): I82.890 - ACUTE EMBOLISM AND THROMBOSIS OF OTHER SPECIFIED VEINS
--- NOTE | 2019-06-04 20:08 | PN ---
Progress Note (short form) - Note Progress Note: Patient seen and examined Denies any c/o AFVSS Cor: RSR, No murmurs, No gallops Lungs: Clear to P&A Abd: Soft, Normal bowel sounds, No organomegaly Ext:No significant edema Labs/Meds reviewed A/P 18 y/o patient with acute pancreatitis with extensive peripancreatic edema. Junction of portal v. and SMV nonocclusive thrombus on CT and nonocclusive splenic vein thrombus on MRI To consider a/c per gi team recs Will start heparin drip without bolus ? switch to DOAC on discharge --? eliquis 5mg bid
[2019-06-04] MEDS ORDERED: INSULIN (LEVEMIR) 100 UNITS/ML UNITS SQ SCH (22:00)
[2019-06-04] MEDS: HEPARIN NA (PORCINE) 5,000 UNITS/ML 1ML VIAL IVPUSH PRN (23:42)
[2019-06-05] MEDS: INSULIN SLIDING SCALE (NOVOLOG) 1 VIAL SQ SCH ×3 (06:00→16:42)
[2019-06-05] MEDS: HEPARIN NA (PORCINE) 5,000 UNITS/ML 1ML VIAL IVPUSH PRN ×3 (07:39→23:03)
[2019-06-05] MEDS: HEPARIN - 25,000 UNIT in SODIUM CHLORIDE 495 ML IV SCH ×2 (07:40→15:00)
[2019-06-05] MEDS: amLODIPine BESYLATE 5 MG TABLET (FP) PO SCH (09:37)
--- NOTE | 2019-06-05 11:08 | PN ---
Progress Note (short form) - Note Progress Note: Feels good Denies any complaints Vital Signs Period Temp Pulse Resp BP Sys/Powell Pulse Ox Last 24 Hr 98.2 F-99.6 F 63-125 20-22 134-150/72-87 99 PE: AOx3 Neck: supple, No JVD HEENT: EOMI Lungs: CTA CVS: S1S2 Abd: Benign, NT, +BS Ext: No edema Neuro: No focal deficit CMP Sodium 138 mmol/L (136-145) 06/04/19 06:12 Potassium 3.7 mmol/L (3.5-5.1) 06/04/19 06:12 Chloride 104 mmol/L (98-107) 06/04/19 06:12 Carbon Dioxide 21 mmol/L (21-32) 06/04/19 06:12 Anion Gap 13 MMOL/L (8-16) 06/04/19 06:12 BUN 12.2 mg/dL (7-18) 06/04/19 06:12 Creatinine 0.8 mg/dL (0.55-1.3) 06/04/19 06:12 Est GFR (CKD-EPI)AfAm 150.09 06/04/19 06:12 Est GFR (CKD-EPI)NonAf 129.50 06/04/19 06:12 POC Glucometer 177 UNITS (80-120) 06/05/19 05:50 Random Glucose 177 mg/dL (74-106) H 06/04/19 06:12 Hemoglobin A1c % 9.0 % (4.2-6.3) H 05/29/19 05:50 Lactic Acid 1.8 mmol/L (0.4-2.0) 05/28/19 18:41 Calcium 8.9 mg/dL (8.5-10.1) 06/04/19 06:12 Total Bilirubin 0.4 mg/dL (0.2-1) 06/04/19 06:12 AST 29 U/L (15-37) 06/04/19 06:12 ALT 45 U/L (13-61) 06/04/19 06:12 Alkaline Phosphatase 80 U/L (45-117) 06/04/19 06:12 Total Protein 6.2 g/dl (6.4-8.2) L 06/04/19 06:12 Albumin 1.8 g/dl (3.4-5.0) L 06/04/19 06:12 Triglycerides 215 mg/dL (0-150) H 06/03/19 06:24 Cholesterol 220 mg/dL (50-200) H 06/03/19 06:24 Total LDL Cholesterol 149 mg/dl (5-100) H 06/03/19 06:24 HDL Cholesterol 28 mg/dL (40-60) L 06/03/19 06:24 Total Amylase 88 U/L (25-115) 06/02/19 06:45 Lipase 718 U/L (73-393) H 06/02/19 06:45 Current Medications Generic Name Dose Route Start Last Admin Trade Name Freq PRN Reason Stop Dose Admin Amlodipine Besylate 5 mg 05/29/19 19:15 06/05/19 09:37 Norvasc - PO 5 mg DAILY VAL Administration Heparin Sodium (Porcine) 1,000 unit 06/04/19 13:45 Heparin - IVPUSH PRN PRN Heparin Heparin Sodium (Porcine) 5,000 unit 06/04/19 13:45 06/05/19 07:39 Heparin - IVPUSH 5,000 unit PRN PRN Administration Heparin Heparin Sodium (Porcine) 25, 500 mls @ 20 mls/hr 06/04/19 15:00 06/05/19 07: 40 000 unit/ Sodium Chloride IV 1,300 unit/hr TITR VAL 26 mls/hr Administration Protocol 1,000 UNIT/HR Insulin Aspart 1 vial 05/30/19 16:30 06/05/19 06:00 Novolog Vial Sliding Scale - SQ Not Given TIDAC [facility] Protocol Insulin Detemir 6 units 06/04/19 22:00 06/04/19 21:34 Levemir Vial SQ 6 units HS VAL Administration A/P Acute Pancreatitis/Splenic vein Thrombus, nonobstructing New Onset DM: A1c 9.0 HTN Hypertriglyceridemia Teach pt to self monitor blood glucose and self inject insulin Nutrition consult BGM QACHS Novolog SS coverage Increase Levemir 8 units daily at HS Will F/U
--- NOTE | 2019-06-05 11:59 | PN ---
Progress Note, Physician Chief Complaint: Not in distress History of Present Illness: Patient was seen and examined. Awake and alert. Chart was reviewed Denies chest pain, SOB or palpitations Still remains tachycardic Currently on Heparin drip for splenic vein thrombus as per Hematology - Current Medication List Current Medications: Active Medications Amlodipine Besylate (Norvasc -) 5 mg PO DAILY [facility] Last Admin: 06/05/19 09:37 Dose: 5 mg Heparin Sodium (Porcine) (Heparin -) 1,000 unit IVPUSH PRN PRN PRN Reason: Heparin Heparin Sodium (Porcine) (Heparin -) 5,000 unit IVPUSH PRN PRN PRN Reason: Heparin Last Admin: 06/05/19 07:39 Dose: 5,000 unit Heparin Sodium (Porcine) 25, (000 unit/ Sodium Chloride) 500 mls @ 20 mls/hr IV TITR [facility]; Protocol Last Admin: 06/05/19 07:40 Dose: 1,300 unit/hr, 26 mls/hr Insulin Aspart (Novolog Vial Sliding Scale -) 1 vial SQ TIDAC [facility]; Protocol Last Admin: 06/05/19 11:23 Dose: Not Given Insulin Detemir (Levemir Vial) 8 units SQ HS [facility] - Objective Vital Signs: Vital Signs Temperature 99.3 F 06/05/19 10:00 Pulse Rate 109 H 06/05/19 10:00 Respiratory Rate 22 H 06/05/19 10:00 Blood Pressure 150/78 06/05/19 10:00 O2 Sat by Pulse Oximetry (%) 98 06/05/19 09:00 Eyes: Yes: PERRL HENT: Yes: Atraumatic Neck: Yes: Supple Cardiovascular: Yes: Tachycardia, S1, S2 Respiratory: Yes: CTA Bilaterally Gastrointestinal: Yes: Normal Bowel Sounds, Soft. No: Tenderness Edema: No Labs: CBC, BMP 06/04/19 06:12 06/04/19 06:12 INR, PTT INR 1.23 (0.83-1.09) H 06/04/19 15:15 Fibrinogen > 500.0 mg/dL (238-498) H 06/04/19 15:15 Problem List - Problems (1) Acute pancreatitis Code(s): K85.90 - ACUTE PANCREATITIS WITHOUT NECROSIS OR INFECTION, UNSP Qualifiers: Pancreatitis type: other (2) Hyperglycemia Code(s): R73.9 - HYPERGLYCEMIA, UNSPECIFIED (3) Hypertension Code(s): I10 - ESSENTIAL (PRIMARY) HYPERTENSION Qualifiers: Hypertension type: essential hypertension Qualified Code(s): I10 - Essential (primary) hypertension (4) Sinus tachycardia Code(s): R00.0 - TACHYCARDIA, UNSPECIFIED (5) Splenic vein thrombosis Code(s): I82.890 - ACUTE EMBOLISM AND THROMBOSIS OF OTHER SPECIFIED VEINS Assessment/Plan 1. Acute pancreatitis and splenic vein thrombus 2. Hypertension 3. Reactive sinus tachycardia 4. T2DM PLAN: 1. Supportive care. Added Heparin drip by Hematology. Considering DOAC possibly 2. Continue Norvasc 5 mg QD as tolerated 3. No specific treatment indicated for sinus tachycardia and continue treating underlying cause Maksim Laura MD
--- NOTE | 2019-06-05 12:05 | PN ---
Physical Exam: SUBJECTIVE: Patient seen and examined at bedside. No acute events. Feels well OBJECTIVE: Vital Signs Period Temp Pulse Resp BP Sys/Powell Pulse Ox Last 24 Hr 98.2 F-99.6 F 63-125 20-22 134-150/72-87 98-99 Gen: AAOx3, NAD HEENT: NCAT, PERRL, EOMI Neck: supple, no jvd Cardio: tachycardic, normal s1s2, no mrg Pulm: cta b/l Abd: obese, nontender, nondistended, soft Ext: no edema Laboratory Results - last 24 hr 06/01/19 06/04/19 06/04/19 06:20 15:15 15:15 PT with INR 14.60 H INR 1.23 H PTT (Actin FS) 32.7 Fibrinogen > 500.0 H POC Glucometer IgG4 17 06/04/19 06/04/19 06/04/19 16:35 20:23 21:20 PT with INR INR PTT (Actin FS) 34.1 Fibrinogen POC Glucometer 168 199 IgG4 06/05/19 06/05/19 06/05/19 05:50 06:45 11:22 PT with INR INR PTT (Actin FS) 32.8 Fibrinogen POC Glucometer 177 189 IgG4 Active Medications Generic Name Dose Route Start Last Admin Trade Name Freq PRN Reason Stop Dose Admin Amlodipine Besylate 5 mg 05/29/19 19:15 06/05/19 09:37 Norvasc - PO 5 mg DAILY [facility] Administration Heparin Sodium (Porcine) 1,000 unit 06/04/19 13:45 Heparin - IVPUSH PRN PRN Heparin Heparin Sodium (Porcine) 5,000 unit 06/04/19 13:45 06/05/19 07:39 Heparin - IVPUSH 5,000 unit PRN PRN Administration Heparin Heparin Sodium (Porcine) 25, 500 mls @ 20 mls/hr 06/04/19 15:00 06/05/19 07: 40 000 unit/ Sodium Chloride IV 1,300 unit/hr TITR VAL 26 mls/hr Administration Protocol 1,000 UNIT/HR Insulin Aspart 1 vial 05/30/19 16:30 06/05/19 11:23 Novolog Vial Sliding Scale - SQ Not Given TIDAC [facility] Protocol Insulin Detemir 8 units 06/05/19 22:00 Levemir Vial SQ HS [facility] ASSESSMENT/PLAN: Pt is a 18 y/o M with PMH HTN, DM, HLD who presented to hospital with abd pain. He was admitted for acute pancreatitis complicated by SMV thrombosis. Heme/Onc was called to evaluate for portal vein clot. SMV thrombosis -noted as a concern on CT abdomen -unlikely in the absence of necrosis -c/w heparin -Fibrinogen elevated today -repeat MRI significant for pancreatitis, likely splenic vein thrombus, and hepatic steatosis Pancreatitis -c/w supportive care Visit type - Emergency Visit Emergency Visit: No - New Patient This patient is new to me today: No - Critical Care Critical Care patient: No ATTENDING PHYSICIAN STATEMENT I saw and evaluated the patient. I reviewed the resident's note and discussed the case with the resident. I agree with the resident's findings and plan as documented. SUBJECTIVE: OBJECTIVE: ASSESSMENT AND PLAN:
--- NOTE | 2019-06-05 13:53 | PN ---
Progress Note, Physician History of Present Illness: stable on heparin drip - Current Medication List Current Medications: Active Medications Amlodipine Besylate (Norvasc -) 5 mg PO DAILY [facility] Last Admin: 06/05/19 09:37 Dose: 5 mg Heparin Sodium (Porcine) (Heparin -) 1,000 unit IVPUSH PRN PRN PRN Reason: Heparin Heparin Sodium (Porcine) (Heparin -) 5,000 unit IVPUSH PRN PRN PRN Reason: Heparin Last Admin: 06/05/19 07:39 Dose: 5,000 unit Heparin Sodium (Porcine) 25, (000 unit/ Sodium Chloride) 500 mls @ 20 mls/hr IV TITR [facility]; Protocol Last Admin: 06/05/19 07:40 Dose: 1,300 unit/hr, 26 mls/hr Insulin Aspart (Novolog Vial Sliding Scale -) 1 vial SQ TIDAC [facility]; Protocol Last Admin: 06/05/19 11:23 Dose: Not Given Insulin Detemir (Levemir Vial) 8 units SQ HS [facility] - Objective Vital Signs: Vital Signs Temperature 99.3 F 06/05/19 10:00 Pulse Rate 109 H 06/05/19 10:00 Respiratory Rate 22 H 06/05/19 10:00 Blood Pressure 150/78 06/05/19 10:00 O2 Sat by Pulse Oximetry (%) 98 06/05/19 09:00 Constitutional: Yes: No Distress, Calm Cardiovascular: Yes: Regular Rate and Rhythm Respiratory: Yes: Regular, CTA Bilaterally Gastrointestinal: Yes: Normal Bowel Sounds, Soft Musculoskeletal: Yes: WNL Extremities: Yes: WNL Neurological: Yes: Alert, Oriented Psychiatric: Yes: Alert, Oriented Labs: CBC, BMP 06/04/19 06:12 06/04/19 06:12 INR, PTT INR 1.23 (0.83-1.09) H 06/04/19 15:15 Fibrinogen > 500.0 mg/dL (238-498) H 06/04/19 15:15 Assessment/Plan Problem List - Problems (1) Acute pancreatitis Code(s): K85.90 - ACUTE PANCREATITIS WITHOUT NECROSIS OR INFECTION, UNSP Qualifiers: Pancreatitis type: other (2) Hyperglycemia Code(s): R73.9 - HYPERGLYCEMIA, UNSPECIFIED (3) Hypertension Code(s): I10 - ESSENTIAL (PRIMARY) HYPERTENSION Qualifiers: Hypertension type: essential hypertension Qualified Code(s): I10 - Essential (primary) hypertension (4) Sinus tachycardia Code(s): R00.0 - TACHYCARDIA, UNSPECIFIED Assessment/Plan continue to monitor heparin
--- NOTE | 2019-06-05 18:05 | PN ---
Progress Note, Physician - Current Medication List Current Medications: Active Medications Amlodipine Besylate (Norvasc -) 5 mg PO DAILY [facility] Last Admin: 06/05/19 09:37 Dose: 5 mg Heparin Sodium (Porcine) (Heparin -) 1,000 unit IVPUSH PRN PRN PRN Reason: Heparin Heparin Sodium (Porcine) (Heparin -) 5,000 unit IVPUSH PRN PRN PRN Reason: Heparin Last Admin: 06/05/19 14:00 Dose: 5,000 unit Heparin Sodium (Porcine) 25, (000 unit/ Sodium Chloride) 500 mls @ 20 mls/hr IV TITR [facility]; Protocol Last Admin: 06/05/19 15:00 Dose: 1,450 unit/hr, 29 mls/hr Insulin Aspart (Novolog Vial Sliding Scale -) 1 vial SQ TIDAC [facility]; Protocol Last Admin: 06/05/19 16:42 Dose: Not Given Insulin Detemir (Levemir Vial) 8 units SQ HS [facility] - Objective Vital Signs: Vital Signs Temperature 98.9 F 06/05/19 14:00 Pulse Rate 112 H 06/05/19 14:00 Respiratory Rate 20 06/05/19 14:00 Blood Pressure 147/86 06/05/19 14:00 O2 Sat by Pulse Oximetry (%) 98 06/05/19 09:00 Constitutional: Yes: No Distress HENT: Yes: Atraumatic Neck: Yes: Supple Cardiovascular: Yes: Regular Rate and Rhythm Respiratory: Yes: CTA Bilaterally Gastrointestinal: Yes: Normal Bowel Sounds Extremities: Yes: WNL Edema: No Neurological: Yes: Alert, Oriented Labs: CBC, BMP 06/04/19 06:12 06/04/19 06:12 INR, PTT INR 1.23 (0.83-1.09) H 06/04/19 15:15 Fibrinogen > 500.0 mg/dL (238-498) H 06/04/19 15:15 Problem List - Problems (1) Acute pancreatitis Assessment/Plan: wbc still elevated ivf fu labs Code(s): K85.90 - ACUTE PANCREATITIS WITHOUT NECROSIS OR INFECTION, UNSP Qualifiers: Pancreatitis type: other (2) Hyperglycemia Assessment/Plan: monitor sugars endo consult on insulin Code(s): R73.9 - HYPERGLYCEMIA, UNSPECIFIED (3) Splenic vein thrombosis Assessment/Plan: iv heparin heme consult Code(s): I82.890 - ACUTE EMBOLISM AND THROMBOSIS OF OTHER SPECIFIED VEINS
--- NOTE | 2019-06-05 19:54 | PN.GI ---
GI Progress Note Subjective: Sitting up in chair, no distress Tolerating PO On IV heprain now - Objective Vital Signs: Vital Signs Temperature 98.6 F 06/05/19 18:00 Pulse Rate 112 H 06/05/19 18:00 Respiratory Rate 20 06/05/19 18:00 Blood Pressure 135/84 06/05/19 18:00 O2 Sat by Pulse Oximetry (%) 98 06/05/19 09:00 Constitutional: Calm Eyes: No: Sclera Icterus Cardiovascular: Yes: Tachycardia Respiratory: Yes: CTA Bilaterally Gastrointestinal Inspection: No: Ascites ...Auscultate: Yes: Normoactive Bowel Sounds ...Palpate: Yes: Soft. No: Hepatomegaly, Splenomegaly, Tenderness Edema: No (No LE edema) Neurological: Yes: Alert Labs: CBC, BMP 06/04/19 06:12 06/04/19 06:12 INR, PTT INR 1.23 (0.83-1.09) H 06/04/19 15:15 Fibrinogen > 500.0 mg/dL (238-498) H 06/04/19 15:15 Hepatic Panel Total Bilirubin 0.4 mg/dL (0.2-1) 06/04/19 06:12 AST 29 U/L (15-37) 06/04/19 06:12 ALT 45 U/L (13-61) 06/04/19 06:12 Alkaline Phosphatase 80 U/L (45-117) 06/04/19 06:12 Albumin 1.8 g/dl (3.4-5.0) L 06/04/19 06:12 Problem List - Problems (1) Acute pancreatitis Assessment/Plan: Clinically doing well despite persistent leukocytosis Would defer to hematology regarding oral anticoagulation regimen and length of treatment Monitor clinically Monitor daily CBC Code(s): K85.90 - ACUTE PANCREATITIS WITHOUT NECROSIS OR INFECTION, UNSP Qualifiers: Pancreatitis type: other
[2019-06-05] MEDS: INSULIN (LEVEMIR) 100 UNITS/ML UNITS SQ SCH (22:15)
[2019-06-06] MEDS: INSULIN SLIDING SCALE (NOVOLOG) 1 VIAL SQ SCH ×3 (06:59→17:58)
[2019-06-06 07:49] LABS: BASO % 0.7 % (0-2.0); EOS % 1.6 % (0-4.5); HEMOGLOBIN 12.5 GM/dL (11.7-16.9); LYMPH % 18.7 % (8-40); MCHC 34.7 g/dl (32.0-35.9); MEAN CELL VOLUME 83.6 fl (80-96); MEAN PLT VOLUME 8.7 fl (7.5-11.1); MONO % 9.3 % (3.8-10.2); NEUT % 69.7 % (42.8-82.8); PLATELET COUNT 565 K/MM3 (134-434); RBC 4.31 M/mm3 (4.00-5.60); RDW 13.6 % (11.9-15.9); WHITE BLOOD COUNT 20.1 K/mm3 (4.0-10.0)
[2019-06-06 08:41] LABS: BILIRUBIN,TOTAL 0.2 mg/dL (0.2-1); BLOOD UREA NITROGEN 10.8 mg/dL (7-18); CALCIUM 8.9 mg/dL (8.5-10.1); CREATININE 0.8 mg/dL (0.55-1.3); POTASSIUM 3.9 mmol/L (3.5-5.1); TOT PROT 6.9 g/dl (6.4-8.2)
[2019-06-06] MEDS: HEPARIN NA (PORCINE) 5,000 UNITS/ML 1ML VIAL IVPUSH PRN ×2 (09:00→21:08)
[2019-06-06 09:16] LABS: ANISOCYTOSIS 1+; MACROCYTOSIS 0; PLATELET ESTIMATE INCREASED
[2019-06-06] MEDS: amLODIPine BESYLATE 5 MG TABLET (FP) PO SCH (09:28)
--- NOTE | 2019-06-06 10:43 | PN ---
Progress Note, Physician History of Present Illness: Epigastric abdominal pain, nausea and emesis resolved. Sinus tachycardia also improving. Tolerating diabetic diet. - Current Medication List Current Medications: Active Medications Amlodipine Besylate (Norvasc -) 5 mg PO DAILY [facility] Last Admin: 06/06/19 09:28 Dose: 5 mg Heparin Sodium (Porcine) (Heparin -) 1,000 unit IVPUSH PRN PRN PRN Reason: Heparin Heparin Sodium (Porcine) (Heparin -) 5,000 unit IVPUSH PRN PRN PRN Reason: Heparin Last Admin: 06/05/19 23:03 Dose: 5,000 unit Heparin Sodium (Porcine) 25, (000 unit/ Sodium Chloride) 500 mls @ 20 mls/hr IV TITR VAL; Protocol Last Titration: 06/05/19 23:03 Dose: 1,600 unit/hr, 32 mls/hr Insulin Aspart (Novolog Vial Sliding Scale -) 1 vial SQ TIDAC [facility]; Protocol Last Admin: 06/06/19 06:59 Dose: Not Given Insulin Detemir (Levemir Vial) 8 units SQ HS [facility] Last Admin: 06/05/19 22:15 Dose: 8 units - Objective Vital Signs: Vital Signs Temperature 98.2 F 06/06/19 07:03 Pulse Rate 105 H 06/06/19 07:03 Respiratory Rate 18 06/06/19 07:03 Blood Pressure 148/95 06/06/19 07:03 O2 Sat by Pulse Oximetry (%) 97 06/05/19 21:00 Constitutional: Yes: No Distress, Calm, Thin Neck: Yes: Supple Cardiovascular: Yes: Tachycardia Respiratory: Yes: Regular, CTA Bilaterally Gastrointestinal: Yes: Normal Bowel Sounds, Soft Edema: No Labs: CBC, BMP 06/06/19 06:55 06/06/19 06:55 INR, PTT INR 1.23 (0.83-1.09) H 06/04/19 15:15 Fibrinogen > 500.0 mg/dL (238-498) H 06/04/19 15:15 Problem List - Problems (1) Hypertension Code(s): I10 - ESSENTIAL (PRIMARY) HYPERTENSION Qualifiers: Hypertension type: essential hypertension Qualified Code(s): I10 - Essential (primary) hypertension (2) Sinus tachycardia Code(s): R00.0 - TACHYCARDIA, UNSPECIFIED (3) Acute pancreatitis Code(s): K85.90 - ACUTE PANCREATITIS WITHOUT NECROSIS OR INFECTION, UNSP Qualifiers: Pancreatitis type: other (4) Hyperglycemia Code(s): R73.9 - HYPERGLYCEMIA, UNSPECIFIED (5) Type 2 diabetes mellitus Code(s): E11.9 - TYPE 2 DIABETES MELLITUS WITHOUT COMPLICATIONS Qualifiers: Diabetes mellitus fpc insulin use: without longwall headgate operator use (6) Splenic vein thrombosis Code(s): I82.890 - ACUTE EMBOLISM AND THROMBOSIS OF OTHER SPECIFIED VEINS Assessment/Plan Abd MRI: Acute pancreatitis with non-obstructive splenic vein thrombosis MRCP: No cholelithiasis or choledocholithiasis RUQ US with diffuse hepatic steatosis, mildly dilated CBD at 0.7, no biliary wall enlargement, no biliary calculus. CT abd/pelvis: Acute pancreatitis, distended bladder, diffuse hepatic steatosis. 1. Acute pancreatitis with non-obstructive splenic vein thrombosis clinically improving 2. Hypertension 3. Reactive sinus tachycardia 4. T2DM A1c 9.0 5. Hypertriglyceridemia PLAN: 1. Supportive care 2. Continue Norvasc 5 mg QD as tolerated 3. No specific treatment indicated for sinus tachycardia and continue treating underlying cause 4. Heparin->DOAC for splenic vein thrombosis in context of acute pancreatitis 5. Repeat ct scan with pancreatic protocol in 6 weeks
--- NOTE | 2019-06-06 10:57 | PN ---
Progress Note (short form) - Note Progress Note: Feels good Denies any complaints Improving blood sugar Vital Signs Period Temp Pulse Resp BP Sys/Powell Pulse Ox Last 24 Hr 98.2 F-98.9 F 105-112 18-20 135-150/83-95 97 PE: AOx3 Neck: supple, No JVD HEENT: EOMI Lungs: CTA CVS: S1S2 Abd: Benign, NT, +BS Ext: No edema Neuro: No focal deficit CMP Sodium 135 mmol/L (136-145) L 06/06/19 06:55 Potassium 3.9 mmol/L (3.5-5.1) 06/06/19 06:55 Chloride 101 mmol/L (98-107) 06/06/19 06:55 Carbon Dioxide 23 mmol/L (21-32) 06/06/19 06:55 Anion Gap 10 MMOL/L (8-16) 06/06/19 06:55 BUN 10.8 mg/dL (7-18) 06/06/19 06:55 Creatinine 0.8 mg/dL (0.55-1.3) 06/06/19 06:55 Est GFR (CKD-EPI)AfAm 150.09 06/06/19 06:55 Est GFR (CKD-EPI)NonAf 129.50 06/06/19 06:55 POC Glucometer 155 UNITS (80-120) 06/06/19 06:57 Random Glucose 154 mg/dL (74-106) H 06/06/19 06:55 Hemoglobin A1c % 9.0 % (4.2-6.3) H 05/29/19 05:50 Lactic Acid 1.8 mmol/L (0.4-2.0) 05/28/19 18:41 Calcium 8.9 mg/dL (8.5-10.1) 06/06/19 06:55 Total Bilirubin 0.2 mg/dL (0.2-1) 06/06/19 06:55 AST 26 U/L (15-37) 06/06/19 06:55 ALT 42 U/L (13-61) 06/06/19 06:55 Alkaline Phosphatase 79 U/L (45-117) 06/06/19 06:55 Total Protein 6.9 g/dl (6.4-8.2) 06/06/19 06:55 Albumin 2.0 g/dl (3.4-5.0) L 06/06/19 06:55 Triglycerides 215 mg/dL (0-150) H 06/03/19 06:24 Cholesterol 220 mg/dL (50-200) H 06/03/19 06:24 Total LDL Cholesterol 149 mg/dl (5-100) H 06/03/19 06:24 HDL Cholesterol 28 mg/dL (40-60) L 06/03/19 06:24 Total Amylase 88 U/L (25-115) 06/02/19 06:45 Lipase 718 U/L (73-393) H 06/02/19 06:45 Current Medications Generic Name Dose Route Start Last Admin Trade Name Freq PRN Reason Stop Dose Admin Amlodipine Besylate 5 mg 05/29/19 19:15 06/06/19 09:28 Norvasc - PO 5 mg DAILY [facility] Administration Heparin Sodium (Porcine) 1,000 unit 06/04/19 13:45 Heparin - IVPUSH PRN PRN Heparin Heparin Sodium (Porcine) 5,000 unit 06/04/19 13:45 06/05/19 23:03 Heparin - IVPUSH 5,000 unit PRN PRN Administration Heparin Heparin Sodium (Porcine) 25, 500 mls @ 20 mls/hr 06/04/19 15:00 06/05/19 23: 03 000 unit/ Sodium Chloride IV 1,600 unit/hr TITR VAL 32 mls/hr Titration Protocol 1,000 UNIT/HR Insulin Aspart 1 vial 05/30/19 16:30 06/06/19 06:59 Novolog Vial Sliding Scale - SQ Not Given TIDAC [facility] Protocol Insulin Detemir 8 units 06/05/19 22:00 06/05/19 22:15 Levemir Vial SQ 8 units HS [facility] Administration A/P Acute Pancreatitis/Splenic vein Thrombus, nonobstructing New Onset DM: A1c 9.0 HTN Hypertriglyceridemia As per pt he is able to self monitor blood glucose and self inject insulin BGM QACHS Novolog SS coverage Levemir 8 units daily at HS W/u as outpt to determine if pt is Ab positive Will F/U
--- NOTE | 2019-06-06 11:11 | PN.GI ---
GI Progress Note Subjective: Pt seen/examined at bedside, sitting in chair, feeling better, denies abdominal pain, n/v, fever/chills. Tolerating diet. - Objective Vital Signs: Vital Signs Temperature 98.2 F 06/06/19 07:03 Pulse Rate 105 H 06/06/19 07:03 Respiratory Rate 18 06/06/19 07:03 Blood Pressure 148/95 06/06/19 07:03 O2 Sat by Pulse Oximetry (%) 97 06/05/19 21:00 Constitutional: Well Nourished, No Distress, Calm Cardiovascular: Yes: WNL, Regular Rate and Rhythm Respiratory: Yes: WNL, Regular, CTA Bilaterally ...Palpate: Yes: Other (Abd soft, nt, nd) Labs: CBC, BMP 06/06/19 06:55 06/06/19 06:55 INR, PTT INR 1.23 (0.83-1.09) H 06/04/19 15:15 Fibrinogen > 500.0 mg/dL (238-498) H 06/04/19 15:15 Problem List - Problems (1) Acute pancreatitis Assessment/Plan: 18yo male with acute pancreatitis and nonocculsive splenic vein thrombosis. Exact etiology remains unclear. No etoh use, IGG4 normal. Pt now on iv heparin. Clinically improved, abdominal pain resolved. Still with leucocytosis. -Continue supportive measures -Diet as tolerated -Consider repeat cultures in view of persisting leucocytosis - ID following. While no abdominal pain, may need repeat imaging if continues to increase -Defer to hematology regarding oral anticoagulant Code(s): K85.90 - ACUTE PANCREATITIS WITHOUT NECROSIS OR INFECTION, UNSP Qualifiers: Pancreatitis type: other
--- NOTE | 2019-06-06 13:36 | PN ---
Progress Note, Physician History of Present Illness: stable on heparin drip - Current Medication List Current Medications: Active Medications Amlodipine Besylate (Norvasc -) 5 mg PO DAILY [facility] Last Admin: 06/06/19 09:28 Dose: 5 mg Heparin Sodium (Porcine) (Heparin -) 1,000 unit IVPUSH PRN PRN PRN Reason: Heparin Heparin Sodium (Porcine) (Heparin -) 5,000 unit IVPUSH PRN PRN PRN Reason: Heparin Last Admin: 06/06/19 09:00 Dose: 5,000 unit Heparin Sodium (Porcine) 25, (000 unit/ Sodium Chloride) 500 mls @ 20 mls/hr IV TITR [facility]; Protocol Last Titration: 06/06/19 09:00 Dose: 1,750 unit/hr, 35 mls/hr Insulin Aspart (Novolog Vial Sliding Scale -) 1 vial SQ TIDAC [facility]; Protocol Last Admin: 06/06/19 12:10 Dose: Not Given Insulin Detemir (Levemir Vial) 8 units SQ HS [facility] Last Admin: 06/05/19 22:15 Dose: 8 units - Objective Vital Signs: Vital Signs Temperature 98.2 F 06/06/19 07:03 Pulse Rate 105 H 06/06/19 07:03 Respiratory Rate 18 06/06/19 07:03 Blood Pressure 148/95 06/06/19 07:03 O2 Sat by Pulse Oximetry (%) 97 06/05/19 21:00 Constitutional: Yes: No Distress, Calm HENT: Yes: Atraumatic, Normocephalic Neck: Yes: Supple, Trachea Midline Cardiovascular: Yes: Regular Rate and Rhythm Respiratory: Yes: Regular, CTA Bilaterally Gastrointestinal: Yes: Normal Bowel Sounds, Soft Musculoskeletal: Yes: WNL Extremities: Yes: WNL Psychiatric: Yes: Alert, Oriented Labs: CBC, BMP 06/06/19 06:55 06/06/19 06:55 INR, PTT INR 1.23 (0.83-1.09) H 06/04/19 15:15 Fibrinogen > 500.0 mg/dL (238-498) H 06/04/19 15:15 Assessment/Plan Problem List - Problems (1) Acute pancreatitis Code(s): K85.90 - ACUTE PANCREATITIS WITHOUT NECROSIS OR INFECTION, UNSP Qualifiers: Pancreatitis type: other (2) Hyperglycemia Code(s): R73.9 - HYPERGLYCEMIA, UNSPECIFIED (3) Hypertension Code(s): I10 - ESSENTIAL (PRIMARY) HYPERTENSION Qualifiers: Hypertension type: essential hypertension Qualified Code(s): I10 - Essential (primary) hypertension (4) Sinus tachycardia Code(s): R00.0 - TACHYCARDIA, UNSPECIFIED Assessment/Plan continue to monitor heparin
[2019-06-06] MEDS: HEPARIN - 25,000 UNIT in SODIUM CHLORIDE 495 ML IV SCH (15:00)
--- NOTE | 2019-06-06 15:47 | PN ---
Progress Note, Physician - Current Medication List Current Medications: Active Medications Amlodipine Besylate (Norvasc -) 5 mg PO DAILY [facility] Last Admin: 06/06/19 09:28 Dose: 5 mg Heparin Sodium (Porcine) (Heparin -) 1,000 unit IVPUSH PRN PRN PRN Reason: Heparin Heparin Sodium (Porcine) (Heparin -) 5,000 unit IVPUSH PRN PRN PRN Reason: Heparin Last Admin: 06/06/19 09:00 Dose: 5,000 unit Heparin Sodium (Porcine) 25, (000 unit/ Sodium Chloride) 500 mls @ 20 mls/hr IV TITR [facility]; Protocol Last Titration: 06/06/19 09:00 Dose: 1,750 unit/hr, 35 mls/hr Insulin Aspart (Novolog Vial Sliding Scale -) 1 vial SQ TIDAC [facility]; Protocol Last Admin: 06/06/19 12:10 Dose: Not Given Insulin Detemir (Levemir Vial) 8 units SQ HS [facility] Last Admin: 06/05/19 22:15 Dose: 8 units - Objective Vital Signs: Vital Signs Temperature 98.7 F 06/06/19 14:00 Pulse Rate 113 H 06/06/19 14:00 Respiratory Rate 20 06/06/19 14:00 Blood Pressure 136/100 06/06/19 14:00 O2 Sat by Pulse Oximetry (%) 98 06/06/19 09:00 Constitutional: Yes: No Distress HENT: Yes: Atraumatic Neck: Yes: Supple Cardiovascular: Yes: Regular Rate and Rhythm Respiratory: Yes: CTA Bilaterally Gastrointestinal: Yes: Normal Bowel Sounds Extremities: Yes: WNL Edema: No Peripheral Pulses WNL: Yes Neurological: Yes: Alert, Oriented Labs: CBC, BMP 06/06/19 06:55 06/06/19 06:55 INR, PTT INR 1.23 (0.83-1.09) H 06/04/19 15:15 Fibrinogen > 500.0 mg/dL (238-498) H 06/04/19 15:15 Problem List - Problems (1) Acute pancreatitis Assessment/Plan: wbc still elevated ivf fu labs Code(s): K85.90 - ACUTE PANCREATITIS WITHOUT NECROSIS OR INFECTION, UNSP Qualifiers: Pancreatitis type: other (2) Hyperglycemia Assessment/Plan: monitor sugars endo consult on insulin Code(s): R73.9 - HYPERGLYCEMIA, UNSPECIFIED (3) Splenic vein thrombosis Assessment/Plan: iv heparin heme follow up regarding po meds Code(s): I82.890 - ACUTE EMBOLISM AND THROMBOSIS OF OTHER SPECIFIED VEINS
[2019-06-06] MEDS: INSULIN (LEVEMIR) 100 UNITS/ML UNITS SQ SCH (21:04)
[2019-06-07] MEDS: INSULIN SLIDING SCALE (NOVOLOG) 1 VIAL SQ SCH ×2 (06:26→11:21)
[2019-06-07 07:07] LABS: HEMATOCRIT 36.2 % (35.4-49); HEMOGLOBIN 12.3 GM/dL (11.7-16.9); MCH 28.4 pg (25.7-33.7); MCHC 33.9 g/dl (32.0-35.9); MEAN CELL VOLUME 83.9 fl (80-96); MEAN PLT VOLUME 8.7 fl (7.5-11.1); PLATELET COUNT 572 K/MM3 (134-434); RBC 4.31 M/mm3 (4.00-5.60); RDW 13.8 % (11.9-15.9); WHITE BLOOD COUNT 17.8 K/mm3 (4.0-10.0)
--- NOTE | 2019-06-07 08:36 | PN ---
Progress Note, Physician History of Present Illness: Epigastric abdominal pain, nausea and emesis resolved. Sinus tachycardia also improving. Tolerating diabetic diet. - Current Medication List Current Medications: Active Medications Amlodipine Besylate (Norvasc -) 5 mg PO DAILY [facility] Last Admin: 06/06/19 09:28 Dose: 5 mg Heparin Sodium (Porcine) (Heparin -) 1,000 unit IVPUSH PRN PRN PRN Reason: Heparin Heparin Sodium (Porcine) (Heparin -) 5,000 unit IVPUSH PRN PRN PRN Reason: Heparin Last Admin: 06/06/19 21:08 Dose: 5,000 unit Heparin Sodium (Porcine) 25, (000 unit/ Sodium Chloride) 500 mls @ 20 mls/hr IV TITR VAL; Protocol Last Titration: 06/07/19 03:47 Dose: 1,900 unit/hr, 38 mls/hr Insulin Aspart (Novolog Vial Sliding Scale -) 1 vial SQ TIDAC [facility]; Protocol Last Admin: 06/07/19 06:26 Dose: Not Given Insulin Detemir (Levemir Vial) 8 units SQ HS [facility] Last Admin: 06/06/19 21:04 Dose: 8 units - Objective Vital Signs: Vital Signs Temperature 97.9 F 06/07/19 06:09 Pulse Rate 108 H 06/07/19 06:09 Respiratory Rate 18 06/07/19 06:09 Blood Pressure 144/89 06/07/19 06:09 O2 Sat by Pulse Oximetry (%) 99 06/06/19 21:00 Constitutional: Yes: No Distress, Calm Neck: Yes: Supple Cardiovascular: Yes: Regular Rate and Rhythm Respiratory: Yes: Regular, CTA Bilaterally Gastrointestinal: Yes: Normal Bowel Sounds, Soft Edema: No Labs: CBC, BMP 06/07/19 06:20 06/06/19 06:55 INR, PTT INR 1.23 (0.83-1.09) H 06/04/19 15:15 Fibrinogen > 500.0 mg/dL (238-498) H 06/04/19 15:15 Problem List - Problems (1) Hypertension Code(s): I10 - ESSENTIAL (PRIMARY) HYPERTENSION Qualifiers: Hypertension type: essential hypertension Qualified Code(s): I10 - Essential (primary) hypertension (2) Sinus tachycardia Code(s): R00.0 - TACHYCARDIA, UNSPECIFIED (3) Acute pancreatitis Code(s): K85.90 - ACUTE PANCREATITIS WITHOUT NECROSIS OR INFECTION, UNSP Qualifiers: Pancreatitis type: other (4) Hyperglycemia Code(s): R73.9 - HYPERGLYCEMIA, UNSPECIFIED (5) Type 2 diabetes mellitus Code(s): E11.9 - TYPE 2 DIABETES MELLITUS WITHOUT COMPLICATIONS Qualifiers: Diabetes mellitus manager intermediate insulin use: without manager intermediate use (6) Splenic vein thrombosis Code(s): I82.890 - ACUTE EMBOLISM AND THROMBOSIS OF OTHER SPECIFIED VEINS Assessment/Plan Abd MRI: Acute pancreatitis with non-obstructive splenic vein thrombosis MRCP: No cholelithiasis or choledocholithiasis RUQ US with diffuse hepatic steatosis, mildly dilated CBD at 0.7, no biliary wall enlargement, no biliary calculus. CT abd/pelvis: Acute pancreatitis, distended bladder, diffuse hepatic steatosis. 1. 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 Hypertension 3. Reactive sinus tachycardia 4. T2DM A1c 9.0 5. Hypertriglyceridemia PLAN: 1. Supportive care 2. Continue Norvasc 5 mg QD as tolerated 3. No specific treatment indicated for sinus tachycardia and continue treating underlying cause 4. Heparin->DOAC for junction of portal v. and SMV, splenic vein thrombosis in context of acute pancreatitis 5. Repeat ct scan with pancreatic protocol in 6 weeks
[2019-06-07] MEDS ORDERED: APIXABAN 5 MG TABLET PO SCH (10:00)
[2019-06-07] MEDS: amLODIPine BESYLATE 5 MG TABLET (FP) PO SCH (10:04)
--- NOTE | 2019-06-07 10:06 | PN ---
Progress Note, Physician History of Present Illness: stable doing well no issues - Current Medication List Current Medications: Active Medications Amlodipine Besylate (Norvasc -) 5 mg PO DAILY [facility] Last Admin: 06/07/19 10:04 Dose: 5 mg Apixaban (Eliquis -) 5 mg PO BID [facility] Last Admin: 06/07/19 10:04 Dose: 5 mg Insulin Aspart (Novolog Vial Sliding Scale -) 1 vial SQ TIDAC [facility]; Protocol Last Admin: 06/07/19 06:26 Dose: Not Given Insulin Detemir (Levemir Vial) 8 units SQ [facility] Last Admin: 06/06/19 21:04 Dose: 8 units - Objective Vital Signs: Vital Signs Temperature 97.9 F 06/07/19 08:55 Pulse Rate 112 H 06/07/19 08:55 Respiratory Rate 18 06/07/19 08:57 Blood Pressure 139/89 06/07/19 08:55 O2 Sat by Pulse Oximetry (%) 99 06/07/19 08:57 Constitutional: Yes: No Distress, Calm HENT: Yes: Atraumatic, Normocephalic Cardiovascular: Yes: Regular Rate and Rhythm Respiratory: Yes: Regular, CTA Bilaterally Musculoskeletal: Yes: WNL Extremities: Yes: WNL Neurological: Yes: Alert, Oriented Psychiatric: Yes: Alert, Oriented Labs: CBC, BMP 06/07/19 06:20 06/06/19 06:55 INR, PTT INR 1.23 (0.83-1.09) H 06/04/19 15:15 Fibrinogen > 500.0 mg/dL (238-498) H 06/04/19 15:15 Assessment/Plan Problem List - Problems (1) Acute pancreatitis Code(s): K85.90 - ACUTE PANCREATITIS WITHOUT NECROSIS OR INFECTION, UNSP Qualifiers: Pancreatitis type: other (2) Hyperglycemia Code(s): R73.9 - HYPERGLYCEMIA, UNSPECIFIED (3) Hypertension Code(s): I10 - ESSENTIAL (PRIMARY) HYPERTENSION Qualifiers: Hypertension type: essential hypertension Qualified Code(s): I10 - Essential (primary) hypertension (4) Sinus tachycardia Code(s): R00.0 - TACHYCARDIA, UNSPECIFIED Assessment/Plan continue to monitor conitnue current mgmt
--- NOTE | 2019-06-07 10:55 | PN ---
Progress Note, Physician - Current Medication List Current Medications: Active Medications Amlodipine Besylate (Norvasc -) 5 mg PO DAILY [facility] Last Admin: 06/07/19 10:04 Dose: 5 mg Apixaban (Eliquis -) 5 mg PO BID [facility] Last Admin: 06/07/19 10:04 Dose: 5 mg Insulin Aspart (Novolog Vial Sliding Scale -) 1 vial SQ TIDAC [facility]; Protocol Last Admin: 06/07/19 06:26 Dose: Not Given Insulin Detemir (Levemir Vial) 8 units SQ HS [facility] Last Admin: 06/06/19 21:04 Dose: 8 units - Objective Vital Signs: Vital Signs Temperature 97.9 F 06/07/19 08:55 Pulse Rate 112 H 06/07/19 08:55 Respiratory Rate 18 06/07/19 08:57 Blood Pressure 139/89 06/07/19 08:55 O2 Sat by Pulse Oximetry (%) 99 06/07/19 08:57 Labs: CBC, BMP 06/07/19 06:20 06/06/19 06:55 INR, PTT INR 1.23 (0.83-1.09) H 06/04/19 15:15 Fibrinogen > 500.0 mg/dL (238-498) H 06/04/19 15:15 Problem List - Problems (1) Acute pancreatitis Code(s): K85.90 - ACUTE PANCREATITIS WITHOUT NECROSIS OR INFECTION, UNSP Qualifiers: Pancreatitis type: other (2) Hyperglycemia Code(s): R73.9 - HYPERGLYCEMIA, UNSPECIFIED (3) Hypertension Code(s): I10 - ESSENTIAL (PRIMARY) HYPERTENSION Qualifiers: Hypertension type: essential hypertension Qualified Code(s): I10 - Essential (primary) hypertension (4) Splenic vein thrombosis Code(s): I82.890 - ACUTE EMBOLISM AND THROMBOSIS OF OTHER SPECIFIED VEINS
--- NOTE | 2019-06-07 14:56 | PN ---
Physical Exam: SUBJECTIVE: Patient seen and examined at bedside. No acute events. Feels fine. OBJECTIVE: Vital Signs Period Temp Pulse Resp BP Sys/Powell Pulse Ox Last 24 Hr 97.9 F-99.0 F 100-112 18-20 139-148/83-90 99-99 Gen: AAOx3, NAD HEENT: NCAT, EOMI Neck: supple, no jvd Cardio: tachycardic, normal s1s2, no mrg Pulm: cta b/l Abd: obese, nontender, nondistended, soft Ext: no edema Laboratory Results - last 24 hr 06/06/19 06/06/19 06/06/19 17:26 18:00 21:04 WBC RBC Hgb Hct MCV MCH MCHC RDW Plt Count MPV PTT (Actin FS) 39.0 H POC Glucometer 130 164 06/07/19 06/07/19 06/07/19 03:15 06:06 06:20 WBC 17.8 H RBC 4.31 Hgb 12.3 Hct 36.2 MCV 83.9 MCH 28.4 MCHC 33.9 RDW 13.8 Plt Count 572 H MPV 8.7 PTT (Actin FS) 51.3 H POC Glucometer 177 06/07/19 06/07/19 06:20 11:18 WBC RBC Hgb Hct MCV MCH MCHC RDW Plt Count MPV PTT (Actin FS) 57.7 H POC Glucometer 136 Active Medications Generic Name Dose Route Start Last Admin Trade Name Freq PRN Reason Stop Dose Admin Amlodipine Besylate 5 mg 05/29/19 19:15 06/07/19 10:04 Norvasc - PO 5 mg DAILY [facility] Administration Apixaban 5 mg 06/07/19 10:00 06/07/19 10:04 Eliquis - PO 5 mg BID [facility] Administration Insulin Aspart 1 vial 05/30/19 16:30 06/07/19 11:21 Novolog Vial Sliding Scale - SQ Not Given TIDAC [facility] Protocol Insulin Detemir 8 units 06/05/19 22:00 06/06/19 21:04 Levemir Vial SQ 8 units HS [facility] Administration ASSESSMENT/PLAN: Pt is a 18 y/o M with PMH HTN, DM, HLD who presented to hospital with abd pain. He was admitted for acute pancreatitis complicated by SMV thrombosis. Heme/Onc was called to evaluate for portal vein clot. SMV thrombosis -noted as a concern on CT abdomen -unlikely in the absence of necrosis -c/w heparin -Fibrinogen elevated today -repeat MRI significant for pancreatitis, likely splenic vein thrombus, and hepatic steatosis Pancreatitis -c/w supportive care Visit type - Emergency Visit Emergency Visit: No - New Patient This patient is new to me today: No - Critical Care Critical Care patient: No ATTENDING PHYSICIAN STATEMENT I saw and evaluated the patient. I reviewed the resident's note and discussed the case with the resident. I agree with the resident's findings and plan as documented. SUBJECTIVE: OBJECTIVE: ASSESSMENT AND PLAN:
--- NOTE | 2019-06-07 15:03 | PN ---
Progress Note (short form) - Note Progress Note: Feels good No complaints Vital Signs Period Temp Pulse Resp BP Sys/Powell Pulse Ox Last 24 Hr 97.9 F-99.0 F 100-112 18-20 139-148/83-90 99-99 PE: AOx3 Neck: supple, No JVD HEENT: EOMI Lungs: CTA CVS: S1S2 Abd: Benign, NT, +BS Ext: No edema Neuro: No focal deficit CMP Sodium 135 mmol/L (136-145) L 06/06/19 06:55 Potassium 3.9 mmol/L (3.5-5.1) 06/06/19 06:55 Chloride 101 mmol/L (98-107) 06/06/19 06:55 Carbon Dioxide 23 mmol/L (21-32) 06/06/19 06:55 Anion Gap 10 MMOL/L (8-16) 06/06/19 06:55 BUN 10.8 mg/dL (7-18) 06/06/19 06:55 Creatinine 0.8 mg/dL (0.55-1.3) 06/06/19 06:55 Est GFR (CKD-EPI)AfAm 150.09 06/06/19 06:55 Est GFR (CKD-EPI)NonAf 129.50 06/06/19 06:55 POC Glucometer 136 UNITS (80-120) 06/07/19 11:18 Random Glucose 154 mg/dL (74-106) H 06/06/19 06:55 Hemoglobin A1c % 9.0 % (4.2-6.3) H 05/29/19 05:50 Lactic Acid 1.8 mmol/L (0.4-2.0) 05/28/19 18:41 Calcium 8.9 mg/dL (8.5-10.1) 06/06/19 06:55 Total Bilirubin 0.2 mg/dL (0.2-1) 06/06/19 06:55 AST 26 U/L (15-37) 06/06/19 06:55 ALT 42 U/L (13-61) 06/06/19 06:55 Alkaline Phosphatase 79 U/L (45-117) 06/06/19 06:55 Total Protein 6.9 g/dl (6.4-8.2) 06/06/19 06:55 Albumin 2.0 g/dl (3.4-5.0) L 06/06/19 06:55 Triglycerides 215 mg/dL (0-150) H 06/03/19 06:24 Cholesterol 220 mg/dL (50-200) H 06/03/19 06:24 Total LDL Cholesterol 149 mg/dl (5-100) H 06/03/19 06:24 HDL Cholesterol 28 mg/dL (40-60) L 06/03/19 06:24 Total Amylase 88 U/L (25-115) 06/02/19 06:45 Lipase 718 U/L (73-393) H 06/02/19 06:45 Current Medications Generic Name Dose Route Start Last Admin Trade Name Freq PRN Reason Stop Dose Admin Amlodipine Besylate 5 mg 05/29/19 19:15 06/07/19 10:04 Norvasc - PO 5 mg DAILY [facility] Administration Apixaban 5 mg 06/07/19 10:00 06/07/19 10:04 Eliquis - PO 5 mg BID [facility] Administration Insulin Aspart 1 vial 05/30/19 16:30 06/07/19 11:21 Novolog Vial Sliding Scale - SQ Not Given TIDAC [facility] Protocol Insulin Detemir 8 units 06/05/19 22:00 06/06/19 21:04 Levemir Vial SQ 8 units HS [facility] Administration A/P Acute Pancreatitis/Splenic vein Thrombus, nonobstructing New Onset DM: A1c 9.0 HTN Hypertriglyceridemia As per pt he is able to self monitor blood glucose and self inject insulin BGM QACHS Novolog SS coverage Levemir 8 units daily at HS W/u as outpt to determine if pt is Ab positive Will F/U
--- NOTE | 2019-06-07 15:49 | PN.GI ---
GI Progress Note Subjective: No abdominal pain No focal complaints WBC trended down today - Objective Vital Signs: Vital Signs Temperature 97.9 F 06/07/19 08:55 Pulse Rate 112 H 06/07/19 08:55 Respiratory Rate 18 06/07/19 08:57 Blood Pressure 139/89 06/07/19 08:55 O2 Sat by Pulse Oximetry (%) 99 06/07/19 08:57 Constitutional: Calm Eyes: No: Sclera Icterus Cardiovascular: Yes: Regular Rate and Rhythm. No: Murmur Respiratory: Yes: CTA Bilaterally Gastrointestinal Inspection: No: Distention ...Auscultate: Yes: Normoactive Bowel Sounds ...Palpate: No: Hepatomegaly, Splenomegaly ...Percussion: Yes: Tympanitic Edema: No (No LE edema) Neurological: Yes: Alert Labs: CBC, BMP 06/07/19 06:20 06/06/19 06:55 INR, PTT INR 1.23 (0.83-1.09) H 06/04/19 15:15 Fibrinogen > 500.0 mg/dL (238-498) H 06/04/19 15:15 Problem List - Problems (1) Acute pancreatitis Assessment/Plan: Clinically much improved and WBC trending down Monitor clinically Diet as tolerated Outpatient follow-up if continued clinical stability and improving leukocytosis with follow-up imaging in 4 weeks Code(s): K85.90 - ACUTE PANCREATITIS WITHOUT NECROSIS OR INFECTION, UNSP Qualifiers: Pancreatitis type: other
[2019-06-07 15:51] VITALS: BP 141/86; PULSE 111; TEMP 98.7
--- NOTE | 2019-06-07 17:52 | DS ---
Physical Examination Vital Signs: Vital Signs Temperature 98.7 F 06/07/19 14:00 Pulse Rate 111 H 06/07/19 14:00 Respiratory Rate 20 06/07/19 14:00 Blood Pressure 141/86 06/07/19 14:00 O2 Sat by Pulse Oximetry (%) 99 06/07/19 08:57 Constitutional: Yes: No Distress HENT: Yes: Atraumatic Neck: Yes: Supple Cardiovascular: Yes: Regular Rate and Rhythm Respiratory: Yes: CTA Bilaterally Gastrointestinal: Yes: Normal Bowel Sounds Extremities: Yes: WNL Edema: No Peripheral Pulses WNL: Yes Neurological: Yes: Alert, Oriented Labs: CBC, BMP 06/07/19 06:20 06/06/19 06:55 Discharge Summary Problems reviewed: Yes Reason For Visit: ACUTE PANCREATITIS Current Active Problems Acute pancreatitis (Acute) Hyperglycemia (Acute) Hypertension (Acute) Sinus tachycardia (Acute) Splenic vein thrombosis (Acute) Type 2 diabetes mellitus (Acute) Condition: Improved - Instructions Referrals: Juancho Keane MD [Staff Physician] - Windy Pantoja MD [Staff Physician] - (call tuesday morning and make appointment for Tuesday for additional testing) Disposition: HOME - Home Medications Comprehensive Discharge Medication List: Ambulatory Orders Amlodipine Besylate [Norvasc -] 5 mg PO DAILY #30 tablet 06/01/19 Apixaban [Eliquis -] 5 mg PO BID #60 tablet 06/07/19 Insulin (Levemir) [Levemir Vial] 8 units SQ HS #100 units 06/07/19 Miscellaneous Medical Supply [Outpatient Order] 1 each ASDIR #1 [facility] [place] Miscellaneous Medical Supply [facility]Out[facility] Order] [facility] [Outpatient Order] 1 each ASDIR #1 [facility]
--- NOTE | 2019-06-07 18:51 | PN ---
Progress Note (short form) - Note Progress Note: Patient seen and examined Denies any c/o Last Vital Signs Temp Pulse Resp BP Pulse Ox 98.7 F 111 H 20 141/86 99 06/07/19 14:00 06/07/19 14:00 06/07/19 14:00 06/07/19 14:00 06/07/19 08:57 Cor: RSR, No murmurs, No gallops Lungs: Clear to P&A Abd: Soft, Normal bowel sounds, No organomegaly Ext:No significant edema Abnormal Lab Results 06/06/19 06/07/19 06/07/19 18:00 03:15 06:20 WBC 17.8 H Plt Count 572 H PTT (Actin FS) 39.0 H 51.3 H 06/07/19 06:20 WBC Plt Count PTT (Actin FS) 57.7 H Active Medications Amlodipine Besylate (Norvasc -) 5 mg PO DAILY [facility] Last Admin: 06/07/19 10:04 Dose: 5 mg Apixaban (Eliquis -) 5 mg PO BID [facility] Last Admin: 06/07/19 10:04 Dose: 5 mg Insulin Aspart (Novolog Vial Sliding Scale -) 1 vial SQ TIDAC [facility]; Protocol Last Admin: 06/07/19 11:21 Dose: Not Given Insulin Detemir (Levemir Vial) 8 units SQ HS [facility] Last Admin: 06/06/19 21:04 Dose: 8 units A/P 18 y/o patient with acute pancreatitis with extensive peripancreatic edema. 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 expect a limited, short period of anticoagulation discussed side effects, complications with patient
== END 2019-06-07 18:58 | disposition home or self-care (01) | DRG 282 ==
LOC: JER 13:51 → JERBED 17:40 → J4W 05-29 16:25
PROVIDERS: ADMIT Internal Medicine; ATTEND Internal Medicine
DX: K85.90 Acute pancreatitis without necrosis or infection, unspecified (principal); R00.0 Tachycardia, unspecified; E78.1 Pure hyperglyceridemia; E66.9 Obesity, unspecified; Z68.37 Body mass index [BMI] 37.0-37.9, adult; I82.890 Acute embolism and thrombosis of other specified veins; D72.829 Elevated white blood cell count, unspecified; E11.65 Type 2 diabetes mellitus with hyperglycemia; K76.0 Fatty (change of) liver, not elsewhere classified
CPT/HCPCS: 36415; 71046-TC-FY; 74177-TC; 74178-TC; 74181-TC; 74183-TC; 76705-TC; 80053; 80061; 82150; 82787; 82803; 82962; 83036; 83605; 83690; 83721; 85025; 85027; 85384; 85610; 85730; 87040; 93005; 93010; 99285-25; A9579; J0131; J1644; J7030; Q9967

== ENCOUNTER → 2021-06-01 | Emergency (ER) | payer OTHER ==
[2021-06-01 16:01] VITALS: BP 152/85; PULSE 84; TEMP 98; BMI 34.7
== END ==
LOC: JERFT 15:26
DX: H57.12 Ocular pain, left eye (principal)
CPT/HCPCS: 99281-25